=== PATIENT | male | born 1950 | race Caucasian/White ===

== ENCOUNTER → 2019-10-26 | Day surgery (SDC) | payer OTHER ==
[2019-10-23 12:55] LABS: Urine WBC None Seen /hpf (0 - 3)
[2019-10-23 13:02] LABS: Basophils # (auto) 0.1 uL; Basophils % (auto) 0.6 % (0.0-2.0); Eosinophils # (auto) 0.8 uL; Eosinophils % (auto) 8.2 % (0.0-7.0); Hematocrit 29.7 % (41.0-53.0); Hemoglobin 9.9 g/dL (13.5-17.5); Lymphocytes # (auto) 2.3 uL; Lymphocytes % (auto) 23.4 % (10.0-50.0); Mean Corpuscular Hemoglobin 32.6 pg (28.0-32.0); Mean Corpuscular Hgb Conc. 33.4 g/dL (32.0-36.0); Mean Corpuscular Volume 97.5 fL (80.0-100.0); Monocytes % (auto) 10.1 % (0.0-12.0); Neutrophils # (auto) 5.8 uL; Neutrophils % (auto) 57.7 % (37.0-80.0); Platelet Count (auto) 242 10^3/uL (140-450); Red Blood Cells 3.04 10^6/uL (4.5-5.90); Red Cell Distribution Width 14.3 % (11.8-14.3)
[2019-10-23 13:33] LABS: Urine Bacteria NONE SEEN /hpf (None Seen); Urine Blood 1+ /uL (Negative); Urine Specific Gravity 1.014 (1.001-1.035)
[2019-10-23 13:38] LABS: INR 0.98 (0.9-1.15); Partial Thromboplastin Time 27.5 sec (23.64-32.05)
[2019-10-23 13:39] LABS: Albumin 3.2 g/dL (3.4-5.0); BUN/Creatinine Ratio 13.1; Calcium 8.8 mg/dL (8.5-10.1); Potassium 4.7 mmol/L (3.5-5.1)
[2019-10-23 13:42] LABS: Bilirubin, Total 0.2 mg/dL (0.2-1.0); Total Protein 6.4 g/dL (6.4-8.2)
[~2019-10-26] VITALS: Ht 157.5 cm; Wt 59.0 kg
[~2019-10-26] MED LIST: ARIP1TAB7 PO; ASCO100076 PO; BUPRTAB PO; BUPRTAB3 PO; CIPROFLOXACIN 400MG/200ML 200 ML IV ONE; DOCU100C8 PO; DOXA4TAB2 PO; FAM20T PO; FURO1TAB31 PO; GEMF600T7 PO; HYDROmorphone HCL 2 MG/ML VL IV PRN; LIDOCAINE 1% HCL (LOCAL ANESTH.) INJ 20ML MDV ONE; LIDOCAINE 2% JELLY 11ml (GLYDO) ONE; LISI2.5T47 PO; LOVA20TA4 PO; MEPERIDINE HCL (25 MG/ML) 1ML VIAL IV ONE; METO-281 PO; METOCLOPRAMIDE HCL 5MG/ml INJ 2ml VIAL IV PRN; MIDAZOLAM HCL 1MG/1ML-2 ML VIAL ONE; MORP1TAB14 PO; MORPHINE SULFATE 4 MG/ML SYR/VIAL IV PRN; OMEG120015 PO; ONDANSETRON HCL 4 MG/2 ML VIAL ONE; PERCOT PO; PRAS1CAP PO; PROPOFOL 10 MG/ML 20 ML IV ONE; SODIUM CHLORIDE LOCK 10 ML ONE; SUCCINYLCHOLINE CHLORIDE 20 MG/ML 10ML VIAL IV ONE; TURM500C3 PO; fentaNYL CITRATE 100 MCG/2 ML VL IV PRN; fentaNYL CITRATE 100 MCG/2 ML VL ONE
[2019-10-26 09:25] VITALS: BP 136/73
== END | disposition home or self-care (01) ==
LOC: SUR 06:25
PROVIDERS: ATTEND Urology
DX: N40.1 Benign prostatic hyperplasia with lower urinary tract symptoms (principal); E11.22 Type 2 diabetes mellitus with diabetic chronic kidney disease; I12.9 Hypertensive chronic kidney disease with stage 1 through stage 4 chronic kidney disease, or unspecified chronic kidney disease; N18.4 Chronic kidney disease, stage 4 (severe); E11.40 Type 2 diabetes mellitus with diabetic neuropathy, unspecified; K44.9 Diaphragmatic hernia without obstruction or gangrene; K21.9 Gastro-esophageal reflux disease without esophagitis; D64.9 Anemia, unspecified; I71.4 Abdominal aortic aneurysm, without rupture; E78.5 Hyperlipidemia, unspecified; Z96.641 Presence of right artificial hip joint; Z87.891 Personal history of nicotine dependence; Z79.899 Other long term (current) drug therapy; Z79.84 Long term (current) use of oral hypoglycemic drugs
CPT/HCPCS: 36415; 52649; 80053; 81001; 85025; 85610; 85730; 87086; 88305; 93005; J0330; J0744; J2001; J2175; J2250; J2405; J2704; J3010

== ENCOUNTER 2021-12-01 14:56 | Inpatient (IN) | payer OTHER ==
[~2021-12-01] VITALS: Ht 167.6 cm; Wt 56.4 kg
[~2021-12-01 14:56] MED LIST changes: -CIPROFLOXACIN 400MG/200ML 200 ML IV ONE; +DOCU100C10 PO; -DOCU100C8 PO; +DULO20CA PO; -FAM20T PO; +FAMO20TA10 PO; +GEMF-19 PO; -GEMF600T7 PO; -HYDROmorphone HCL 2 MG/ML VL IV PRN; -LIDOCAINE 1% HCL (LOCAL ANESTH.) INJ 20ML MDV ONE; -LIDOCAINE 2% JELLY 11ml (GLYDO) ONE; -MEPERIDINE HCL (25 MG/ML) 1ML VIAL IV ONE; -METOCLOPRAMIDE HCL 5MG/ml INJ 2ml VIAL IV PRN; -MIDAZOLAM HCL 1MG/1ML-2 ML VIAL ONE; -MORPHINE SULFATE 4 MG/ML SYR/VIAL IV PRN; -ONDANSETRON HCL 4 MG/2 ML VIAL ONE; -PROPOFOL 10 MG/ML 20 ML IV ONE; -SODIUM CHLORIDE LOCK 10 ML ONE; -SUCCINYLCHOLINE CHLORIDE 20 MG/ML 10ML VIAL IV ONE; +ZOLP10TA PO; -fentaNYL CITRATE 100 MCG/2 ML VL IV PRN; -fentaNYL CITRATE 100 MCG/2 ML VL ONE
[2021-12-01 16:00] LABS: Basophils # (auto) 0 10 ^3/uL (0-0.2); Basophils % (auto) 0.3 % (0.0-2.0); Eosinophils # (auto) 0.1 10 ^3/uL (0-0.8); Eosinophils % (auto) 0.9 % (0.0-7.0); Hematocrit 35.1 % (41.0-53.0); Hemoglobin 11.7 g/dL (13.5-17.5); Lymphocytes # (auto) 1.4 10 ^3/uL (0.4-5.4); Lymphocytes % (auto) 14.6 % (10.0-50.0); Mean Corpuscular Hemoglobin 35.6 pg (28.0-32.0); Mean Corpuscular Hgb Conc. 33.3 g/dL (32.0-36.0); Mean Corpuscular Volume 106.8 fL (80.0-100.0); Monocytes % (auto) 10.9 % (0.0-12.0); Neutrophils % (auto) 73.3 % (37.0-80.0); Nucleated Red Blood Cells % 0.1 %; Red Blood Cells 3.29 10^6/uL (4.5-5.90); Red Cell Distribution Width 15.7 % (11.8-14.3); White Blood Cell 9.5 10^3/uL (4.4-10.8)
[2021-12-01 16:13] LABS: Albumin 3.2 g/dL (3.4-5.0); Calcium 9.7 mg/dL (8.5-10.1); Potassium 4.8 mmol/L (3.5-5.1)
[2021-12-01 16:17] LABS: Bilirubin, Total 0.4 mg/dL (0.2-1.0); Total Protein 6.9 g/dL (6.4-8.2)
[2021-12-02] MEDS ORDERED: PIPERACILLIN-TAZOB 2.25GM 50 ML IV ONE (03:30)
[2021-12-02] MEDS ORDERED: ACETAMINOPHEN 325 MG TAB PO PRN (03:30)
[2021-12-02] MEDS ORDERED: HYDROcodone-ACET 5/325MG TAB PO PRN (03:30)
[2021-12-02] MEDS ORDERED: ONDANSETRON HCL 4 MG/2 ML VIAL IV PRN (03:30)
[2021-12-02] MEDS ORDERED: DOCUSATE SOD 100 MG CAP PO PRN (03:30)
[2021-12-02] MEDS ORDERED: MORPHINE SULFATE INJECTION 2 MG/ML SYRG IV PRN (04:45)
[2021-12-02] MEDS ORDERED: NITROGLYCERIN 0.4 MG SL TAB SL PRN (04:45)
[2021-12-02 05:00] VITALS: BP 152/83
[2021-12-02 07:05] LABS: Basophils # (auto) 0 10 ^3/uL (0-0.2); Eosinophils # (auto) 0.2 10 ^3/uL (0-0.8); Neutrophils # (auto) 4.9 10 ^3/uL (1.6-8.6)
[2021-12-02 07:07] LABS: Basophils % (auto) 0.5 % (0.0-2.0); Eosinophils % (auto) 2.2 % (0.0-7.0); Hematocrit 31.6 % (41.0-53.0); Hemoglobin 10.5 g/dL (13.5-17.5); Lymphocytes # (auto) 1.4 10 ^3/uL (0.4-5.4); Lymphocytes % (auto) 18.4 % (10.0-50.0); Mean Corpuscular Hemoglobin 35.5 pg (28.0-32.0); Mean Corpuscular Hgb Conc. 33.3 g/dL (32.0-36.0); Mean Corpuscular Volume 106.6 fL (80.0-100.0); Monocytes % (auto) 13.2 % (0.0-12.0); Neutrophils % (auto) 65.7 % (37.0-80.0); Red Blood Cells 2.96 10^6/uL (4.5-5.90); Red Cell Distribution Width 15.7 % (11.8-14.3); White Blood Cell 7.5 10^3/uL (4.4-10.8)
[2021-12-02 07:12] LABS: Albumin 2.7 g/dL (3.4-5.0); Calcium 9.7 mg/dL (8.5-10.1); Potassium 4.9 mmol/L (3.5-5.1)
[2021-12-02 07:14] LABS: BUN/Creatinine Ratio 7.6
[2021-12-02 07:16] LABS: Bilirubin, Total 0.3 mg/dL (0.2-1.0); Total Protein 5.9 g/dL (6.4-8.2)
[2021-12-02] MEDS ORDERED: FURO1TAB32 PO (07:18)
[2021-12-02] MEDS ORDERED: CALC667C PO (07:24)
[2021-12-02] MEDS ORDERED: MEGE20TA5 PO (07:24)
[2021-12-02] MEDS ORDERED: RASA0.5T PO (07:24)
[2021-12-02] MEDS ORDERED: POM (07:24)
[2021-12-02] MEDS ORDERED: CARB25TA75 PO (07:24)
[2021-12-02] MEDS: SEVELAMER 800 MG TAB PO SCH ×2 (08:47→12:24)
[2021-12-02 09:00] VITALS: BP 118/71
[2021-12-02] MEDS ORDERED: B-COMPLEX W/ C & FOLIC ACID(NEPHROVITE TAB) PO SCH (10:00)
[2021-12-02] MEDS ORDERED: HEPARIN SODIUM (PORCINE) 5000 UNITS/ML 1ML VIAL SC SCH (10:00)
[2021-12-02] MEDS ORDERED: ZINC SULFATE 220mg CAP or TAB PO SCH (10:00)
[2021-12-02] MEDS ORDERED: PIPERACILLIN-TAZOB 2.25GM 50 ML IV SCH (10:00)
[2021-12-02] MEDS ORDERED: ASCORBIC ACID 500 MG TAB PO SCH (10:00)
[2021-12-02] MEDS ORDERED: FAMOTIDINE (10MG/ML) 2ML VL IV SCH (10:00)
[2021-12-02 13:00] VITALS: BP_SYST 112; BP_SYST 157; BP_DIAS 72; BP_DIAS 98
[2021-12-02 17:00] VITALS: BP 115/74
[2021-12-02 19:14] VITALS: BP 115/74
== END 2021-12-02 21:05 | disposition home health service (06) | DRG 602 ==
LOC: ER 14:58 → OVERFLOW 12-02 04:37 → WEST WING 12-02 05:02
PROVIDERS: ADMIT Nurse Practitioner Family; ATTEND Nurse Practitioner Family
DX: L03.311 Cellulitis of abdominal wall (principal); N18.6 End stage renal disease; I12.0 Hypertensive chronic kidney disease with stage 5 chronic kidney disease or end stage renal disease; E87.1 Hypo-osmolality and hyponatremia; E88.09 Other disorders of plasma-protein metabolism, not elsewhere classified; F32.9 Major depressive disorder, single episode, unspecified; G89.29 Other chronic pain; M54.50 Low back pain, unspecified; K21.9 Gastro-esophageal reflux disease without esophagitis; E78.5 Hyperlipidemia, unspecified; Z82.49 Family history of ischemic heart disease and other diseases of the circulatory system; Z99.2 Dependence on renal dialysis; Z20.822 Contact with and (suspected) exposure to COVID-19
CPT/HCPCS: 36415; 71046; 74176; 80053; 85025; 87040; 87205; 87426; 89051; 96365; G0378; J2543; J3490

== ENCOUNTER 2022-03-21 20:12 | Emergency (ER) | payer OTHER ==
[~2022-03-21] VITALS: Ht 157.5 cm; Wt 61.2 kg
[~2022-03-21 20:12] MED LIST changes: -ASCO100076 PO; +CALC667C PO; +CARB25TA75 PO; -FURO1TAB31 PO; +FURO1TAB32 PO; +MEGE20TA5 PO; +POM; +RASA0.5T PO; -TURM500C3 PO
[2022-03-21] MEDS ORDERED: IOHEXOL 350 MG/ML 100ML IJ ONE (22:54)
[2022-03-21] MEDS ORDERED: ONDANSETRON ODT 4 MG TAB PO ONE (23:00)
[2022-03-21] MEDS ORDERED: FAMOTIDINE 20 MG TAB PO ONE (23:00)
[2022-03-21] MEDS ORDERED: ALUM & MAG HYDROX-SIMETH LIQ(MAALOX) 30 ML PO ONE (23:00)
[2022-03-21] MEDS ORDERED: LIDOCAINE VISCOUS 2% 15ML UD PO ONE (23:00)
[2022-03-21 23:38] LABS: Basophils # (auto) 0 10 ^3/uL (0-0.2); Eosinophils # (auto) 0.2 10 ^3/uL (0-0.8); Eosinophils % (auto) 2.7 % (0.0-7.0); Lymphocytes # (auto) 1.4 10 ^3/uL (0.4-5.4); Neutrophils # (auto) 5.4 10 ^3/uL (1.6-8.6); Nucleated Red Blood Cells % 0.1 %
[2022-03-21 23:40] LABS: Basophils % (auto) 0.6 % (0.0-2.0); Hematocrit 34.8 % (41.0-53.0); Hemoglobin 11.8 g/dL (13.5-17.5); Lymphocytes % (auto) 16.8 % (10.0-50.0); Mean Corpuscular Hemoglobin 34.8 pg (28.0-32.0); Mean Corpuscular Hgb Conc. 33.8 g/dL (32.0-36.0); Monocytes % (auto) 12.9 % (0.0-12.0); Red Blood Cells 3.38 10^6/uL (4.5-5.90); Red Cell Distribution Width 15.7 % (11.8-14.3); White Blood Cell 8.1 10^3/uL (4.4-10.8)
[2022-03-21] MEDS ORDERED: VANCOMYCIN 1GM/250ML 250 ML IV ONE (23:45)
[2022-03-21 23:52] LABS: Magnesium 2.6 mg/dL (1.6-2.6)
[2022-03-22] LABS: Albumin 3.2 g/dL (3.4-5.0); BUN/Creatinine Ratio 6.5; Calcium 9.1 mg/dL (8.5-10.1); Potassium 4.5 mmol/L (3.5-5.1)
[2022-03-22 00:18] LABS: Bilirubin, Total 0.3 mg/dL (0.2-1.0); Total Protein 6.8 g/dL (6.4-8.2)
[2022-03-22] MEDS: PIPERACILLIN-TAZOB 3.375GM 100 ML IV ONE ×2 (04:15→04:36)
[2022-03-22 18:00] VITALS: BP 145/85
== END 2022-03-22 18:25 | disposition home or self-care (01) ==
LOC: ER 20:12
DX: J18.9 Pneumonia, unspecified organism (principal); N18.6 End stage renal disease; Z99.2 Dependence on renal dialysis; F17.210 Nicotine dependence, cigarettes, uncomplicated; Z79.899 Other long term (current) drug therapy; Z20.822 Contact with and (suspected) exposure to COVID-19
CPT/HCPCS: 36415; 70450; 71045; 71275; 80053; 83690; 83735; 83880; 84484; 85025; 87426; 93005; 96365; 96366; 96367; 99285; J2543; J3370; Q0162; Q9967

== ENCOUNTER 2022-10-23 12:06 | Inpatient (IN) | payer MEDICARE, OTHER ==
[~2022-10-23] VITALS: Ht 167.6 cm; Wt 53.2 kg
[2022-10-23] MEDS ORDERED: AZITHROMYCIN 500MG/ 250ML 250 ML IV ONE (15:15)
[2022-10-23] MEDS ORDERED: cefTRIAXone 1GM/50ML D5W 50 ML IV ONE (15:15)
[2022-10-23 15:39] LABS: Albumin 2.8 g/dL (3.4-5.0); BUN/Creatinine Ratio 7.5; Calcium 8.3 mg/dL (8.5-10.1); Potassium 4.9 mmol/L (3.5-5.1)
[2022-10-23 15:42] LABS: Bilirubin, Total 0.3 mg/dL (0.2-1.0); Total Protein 5.6 g/dL (6.4-8.2)
[2022-10-23] MEDS ORDERED: ALBUTEROL SULF 2.5 MG/0.5ML(0.5%) NEB SOLN NEB PRN (15:45)
[2022-10-23] MEDS ORDERED: SODIUM CHLORIDE 0.9% 1,000 ML IV SCH (15:45)
[2022-10-23] MEDS ORDERED: ACETAMINOPHEN 325 MG TAB PO PRN (15:45)
[2022-10-23] MEDS ORDERED: PANTOPRAZOLE 40 MG/10 ML VIAL INJ IV ONE (16:00)
[2022-10-23 16:10] LABS: Basophils # (auto) 0.1 10 ^3/uL (0-0.2); Basophils % (auto) 0.9 % (0.0-2.0); Eosinophils # (auto) 0.4 10 ^3/uL (0-0.8); Eosinophils % (auto) 5.8 % (0.0-7.0); Hematocrit 38.4 % (41.0-53.0); Hemoglobin 12.3 g/dL (13.5-17.5); Lymphocytes % (auto) 31.6 % (10.0-50.0); Mean Corpuscular Hemoglobin 27.4 pg (28.0-32.0); Mean Corpuscular Volume 85.6 fL (80.0-100.0); Monocytes # (auto) 0.6 10 ^3/uL (0-1.3); Monocytes % (auto) 9.1 % (0.0-12.0); Neutrophils # (auto) 3.3 10 ^3/uL (1.6-8.6); Neutrophils % (auto) 52.6 % (37.0-80.0); Nucleated Red Blood Cells % 0.1 %; Red Blood Cells 4.48 10^6/uL (4.5-5.90); Red Cell Distribution Width 17.2 % (11.8-14.3); White Blood Cell 6.3 10^3/uL (4.4-10.8)
[2022-10-23 17:00] LABS: Cholesterol 130 mg/dL (< 200)
[2022-10-23 17:03] LABS: HDL Cholesterol 45 mg/dL (40-59); LDL Cholesterol 63 mg/dL (< 100); Triglycerides 162 mg/dL (< 150)
[2022-10-23 17:29] LABS: INR 0.94 (0.9-1.15)
[2022-10-23] MEDS ORDERED: CALCIUM ACETATE 667 MG CAP PO SCH (18:00)
[2022-10-23] MEDS ORDERED: MEGESTROL ACETATE 20 MG TAB PO SCH (18:00)
[2022-10-23 20:10] VITALS: BP 181/82
[2022-10-23] MEDS ORDERED: ASCORBIC ACID 500 MG TAB PO SCH (22:00)
[2022-10-23] MEDS ORDERED: GEMFIBROZIL 600 MG TAB PO SCH (22:00)
[2022-10-23] MEDS: CARBIDOPA W LEVODOPA 25/100mg TABLET PO SCH (22:16)
[2022-10-23] MEDS: HEPARIN SODIUM (PORCINE) 5000 UNITS/ML 1ML VIAL SC SCH (22:33)
[2022-10-23] MEDS: DOXAZOSIN MESYL 2 MG TAB PO SCH (22:33)
[2022-10-24 06:45] LABS: Urine Bacteria NONE SEEN /hpf (None Seen); Urine Blood 1+ /uL (Negative); Urine Specific Gravity 1.016 (1.001-1.035); Urine WBC 1 /hpf (0 - 3)
[2022-10-24] MEDS ORDERED: oxyCODONE ER 10 MG TAB PO PRN (07:15)
[2022-10-24 07:45] LABS: Albumin 2.1 g/dL (3.4-5.0); Anion Gap 4 (5-15); Blood Urea Nitrogen 38 mg/dL (7-18); Calcium 7.9 mg/dL (8.5-10.1); Carbon Dioxide 23 mmol/L (21-32); Chloride 110 mmol/L (98-107); Glucose 94 mg/dL (74-106); Potassium 4.4 mmol/L (3.5-5.1); Sodium 137 mmol/L (136-145)
[2022-10-24 07:50] LABS: Alanine Aminotransferase < 6 U/L (16-61); Alkaline Phosphatase 61 U/L (45-117); Aspartate Aminotransferase 7 U/L (15-37); BUN/Creatinine Ratio 7.9; Bilirubin, Total 0.5 mg/dL (0.2-1.0); GFR African American 15 mL/min; GFR Non-African American 13 mL/min; Total Protein 4.7 g/dL (6.4-8.2)
[2022-10-24] MEDS: CALCIUM ACETATE 667 MG CAP PO SCH ×3 (08:27→18:25)
[2022-10-24] MEDS: OXYCODONE W/ ACETAMINOPHEN 5/325MG TABLET PO PRN (08:34)
[2022-10-24] MEDS: cefTRIAXone 1GM/50ML D5W 50 ML IV SCH (09:40)
[2022-10-24] MEDS: Duloxetine Hcl (Cymbalta) 20MG CAPSULE PO SCH (10:00)
[2022-10-24] MEDS: Bupropion HCl (Wellbutrin Xl) 300 MG PO SCH (10:00)
[2022-10-24] MEDS: BUPROPION HCL 150 MG PO SCH (10:00)
[2022-10-24] MEDS ORDERED: ZINC SULFATE 220mg CAP or TAB PO SCH (10:00)
[2022-10-24] MEDS ORDERED: ENOXAPARIN SOD 40 MG/0.4 ML SYRINGE SC SCH (10:00)
[2022-10-24 10:58] VITALS: BP 137/80
[2022-10-24] MEDS ORDERED: SODIUM CHL 0.9% 1000 ML BAG XX ONE (11:00)
[2022-10-24] MEDS ORDERED: ALBUTEROL MEDNEB 2.5 mg/3ml NEB ONE (11:52)
[2022-10-24] MEDS ORDERED: IPRATROPIUM BROM 0.5 MG/2.5ML INH SOL ONE (11:52)
[2022-10-24] MEDS ORDERED: ALBUTEROL MEDNEB 2.5 mg/3ml NEB NEB PRN (12:15)
[2022-10-24] MEDS: MULTIPLE VITAMIN TAB PO SCH (12:16)
[2022-10-24] MEDS: PANTOPRAZOLE 40 MG/10 ML VIAL INJ IV SCH (12:16)
[2022-10-24] MEDS: AZITHROMYCIN 500MG/ 250ML 250 ML IV SCH (12:16)
[2022-10-24] MEDS: FUROSEMIDE 40 MG TAB PO SCH (12:17)
[2022-10-24] MEDS: CARBIDOPA W LEVODOPA 25/100mg TABLET PO SCH ×2 (12:17→22:20)
[2022-10-24] MEDS: LISINOPRIL 5 MG TAB PO SCH (12:18)
[2022-10-24] MEDS: HEPARIN SODIUM (PORCINE) 5000 UNITS/ML 1ML VIAL SC SCH ×2 (12:18→22:20)
[2022-10-24 16:35] VITALS: BP 108/44
[2022-10-24] MEDS: IPRATROPIUM BROM 0.5 MG/2.5ML INH SOL NEB SCH ×3 (19:07→19:15)
[2022-10-24] MEDS: BUDESONIDE (INHALATION) 0.5 MG/2 ML NEB NEB SCH (19:07)
[2022-10-24] MEDS: ALBUTEROL MEDNEB 2.5 mg/3ml NEB NEB SCH (19:07)
[2022-10-24 21:58] VITALS: BP 147/75
[2022-10-24] MEDS ORDERED: ATORVASTATIN 20 MG TAB PO SCH (22:00)
[2022-10-24] MEDS: DOXAZOSIN MESYL 2 MG TAB PO SCH (22:19)
[2022-10-25] MEDS: OXYCODONE W/ ACETAMINOPHEN 5/325MG TABLET PO PRN ×2 (02:46→09:34)
[2022-10-25 05:22] VITALS: BP 152/80
[2022-10-25] MEDS: BUDESONIDE (INHALATION) 0.5 MG/2 ML NEB NEB SCH (07:25)
[2022-10-25] MEDS: ALBUTEROL MEDNEB 2.5 mg/3ml NEB NEB SCH ×2 (07:25→12:25)
[2022-10-25] MEDS: IPRATROPIUM BROM 0.5 MG/2.5ML INH SOL NEB SCH ×2 (07:25→12:25)
[2022-10-25 09:00] VITALS: BP 171/77
[2022-10-25] MEDS: PANTOPRAZOLE 40 MG/10 ML VIAL INJ IV SCH (09:32)
[2022-10-25] MEDS: CALCIUM ACETATE 667 MG CAP PO SCH ×2 (09:33→12:08)
[2022-10-25] MEDS: cefTRIAXone 1GM/50ML D5W 50 ML IV SCH (09:33)
[2022-10-25] MEDS: FUROSEMIDE 40 MG TAB PO SCH (09:34)
[2022-10-25] MEDS: CARBIDOPA W LEVODOPA 25/100mg TABLET PO SCH (09:34)
[2022-10-25] MEDS: MULTIPLE VITAMIN TAB PO SCH (09:34)
[2022-10-25] MEDS: LISINOPRIL 5 MG TAB PO SCH (09:36)
[2022-10-25] MEDS: HEPARIN SODIUM (PORCINE) 5000 UNITS/ML 1ML VIAL SC SCH (09:41)
[2022-10-25] MEDS: Bupropion HCl (Wellbutrin Xl) 300 MG PO SCH (09:42)
[2022-10-25] MEDS: Duloxetine Hcl (Cymbalta) 20MG CAPSULE PO SCH (09:43)
[2022-10-25] MEDS: BUPROPION HCL 150 MG PO SCH (09:43)
[2022-10-25] MEDS: AZITHROMYCIN 500MG/ 250ML 250 ML IV SCH (12:00)
[2022-10-25 13:00] VITALS: BP 112/67
[2022-10-25 15:04] VITALS: BP 171/77
[2022-10-26] MEDS ORDERED: SODIUM CHL 0.9% 1000 ML BAG XX ONE (07:00)
== END 2022-10-25 16:00 | DRG 189 ==
LOC: EDBD 12:06 → ER 12:06 → OVERFLOW 15:46 → CENTRAL 10-24 10:23
PROVIDERS: ADMIT Nurse Practitioner Family; ATTEND Nurse Practitioner Acute Care
PROC: 5A1D70Z Performance of Urinary Filtration, Intermittent, Less than 6 Hours Per Day (ICD-10-PCS; principal; 2022-10-24)
DX: J96.00 Acute respiratory failure, unspecified whether with hypoxia or hypercapnia (principal); J15.9 Unspecified bacterial pneumonia; I50.43 Acute on chronic combined systolic (congestive) and diastolic (congestive) heart failure; N18.6 End stage renal disease; I13.2 Hypertensive heart and chronic kidney disease with heart failure and with stage 5 chronic kidney disease, or end stage renal disease; J44.0 Chronic obstructive pulmonary disease with (acute) lower respiratory infection; J44.1 Chronic obstructive pulmonary disease with (acute) exacerbation; R64 Cachexia; G20 Parkinson's disease; K21.9 Gastro-esophageal reflux disease without esophagitis; Z99.2 Dependence on renal dialysis; D63.8 Anemia in other chronic diseases classified elsewhere; E88.09 Other disorders of plasma-protein metabolism, not elsewhere classified; Z20.822 Contact with and (suspected) exposure to COVID-19; F17.210 Nicotine dependence, cigarettes, uncomplicated; Z82.49 Family history of ischemic heart disease and other diseases of the circulatory system
CPT/HCPCS: 36415; 71045; 78582; 80053; 80061; 81001; 83036; 83880; 84443; 85025; 85379; 85610; 87081; 87426; 87804; 90935; 94640; C9113; G0378; J0696; J1642

== ENCOUNTER 2022-11-28 09:41 | Emergency (ER) | payer MEDICARE, OTHER ==
[~2022-11-28] VITALS: Ht 152.4 cm; Wt 50.0 kg
[2022-11-28 09:45] VITALS: BP 178/93
[2022-11-28 11:04] LABS: Basophils # (auto) 0.1 10 ^3/uL (0-0.2); Eosinophils # (auto) 0.2 10 ^3/uL (0-0.8); Hemoglobin 9.9 g/dL (13.5-17.5); Mean Corpuscular Volume 89.5 fL (80.0-100.0); Monocytes # (auto) 0.8 10 ^3/uL (0-1.3); Neutrophils # (auto) 7.7 10 ^3/uL (1.6-8.6)
[2022-11-28 11:05] LABS: Basophils % (auto) 0.5 % (0.0-2.0); Eosinophils % (auto) 2.2 % (0.0-7.0); Hematocrit 31.6 % (41.0-53.0); Lymphocytes # (auto) 0.8 10 ^3/uL (0.4-5.4); Lymphocytes % (auto) 8.7 % (10.0-50.0); Mean Corpuscular Hemoglobin 27.9 pg (28.0-32.0); Mean Corpuscular Hgb Conc. 31.2 g/dL (32.0-36.0); Monocytes % (auto) 8.3 % (0.0-12.0); Neutrophils % (auto) 80.3 % (37.0-80.0); Red Blood Cells 3.54 10^6/uL (4.5-5.90); Red Cell Distribution Width 19.6 % (11.8-14.3); White Blood Cell 9.6 10^3/uL (4.4-10.8)
[2022-11-28 11:21] LABS: Albumin 2.4 g/dL (3.4-5.0); BUN/Creatinine Ratio 6.2; Calcium 8.6 mg/dL (8.5-10.1)
[2022-11-28 11:24] LABS: Bilirubin, Total 0.5 mg/dL (0.2-1.0); Total Protein 6.3 g/dL (6.4-8.2)
[2022-11-28 11:50] LABS: Potassium 5.9 mmol/L (3.5-5.1)
[2022-11-28] MEDS ORDERED: CALCIUM GLUC 1,000mg/50ml-NS 50 ML IV ONE (13:45)
[2022-11-28] MEDS ORDERED: SODIUM BICARBONATE 8.4 % INJ 50ML VIAL IV ONE (13:45)
[2022-11-28] MEDS ORDERED: InsuLIN REG 1unit/0.01ml Soln (100units/ml) IV ONE (16:15)
[2022-11-28] MEDS ORDERED: SODIUM ZIRCONIUM CYCL 10 GM PAK PO ONE (16:15)
[2022-11-28] MEDS ORDERED: FUROSEMIDE 40 MG/4 ML VIAL IV ONE (16:15)
[2022-11-28] MEDS ORDERED: DEXTROSE (50%) 50ML SYRG IV ONE (16:15)
[2022-11-28] MEDS ORDERED: ONDANSETRON HCL 4 MG/2 ML VIAL IV ONE (17:45)
[2022-11-28] MEDS ORDERED: SODIUM ZIRCONIUM CYCL 10 GM PAK PO SCH (22:00)
[2022-11-29] MEDS ORDERED: SODIUM CHL 0.9% 1000 ML BAG XX ONE (07:00)
[2022-11-29] MEDS ORDERED: EPOETIN ALFA-EPBX 4,000 UNIT/ML VIAL SC ONE (21:00)
== END 2022-11-28 17:40 | disposition left against medical advice (07) ==
LOC: ER 09:41 → EDBD 09:41 → ER 17:40
DX: I12.0 Hypertensive chronic kidney disease with stage 5 chronic kidney disease or end stage renal disease (principal); N18.6 End stage renal disease; E87.5 Hyperkalemia; G25.2 Other specified forms of tremor; E78.5 Hyperlipidemia, unspecified; F17.210 Nicotine dependence, cigarettes, uncomplicated; F12.10 Cannabis abuse, uncomplicated
CPT/HCPCS: 36415; 71045; 80053; 85025; 96374; 99284; J2405

== ENCOUNTER 2023-01-01 09:12 | Inpatient (IN) | payer MEDICARE, OTHER ==
[~2023-01-01] VITALS: Ht 160 cm; Wt 53.6 kg
[2023-01-01 10:13] LABS: Basophils # (auto) 0.1 10 ^3/uL (0-0.2); Eosinophils # (auto) 0.3 10 ^3/uL (0-0.8); Monocytes # (auto) 0.5 10 ^3/uL (0-1.3); Red Blood Cells 4.04 10^6/uL (4.5-5.90)
[2023-01-01 10:15] LABS: Basophils % (auto) 0.8 % (0.0-2.0); Hematocrit 42.4 % (41.0-53.0); Hemoglobin 13.4 g/dL (13.5-17.5); Lymphocytes # (auto) 1.8 10 ^3/uL (0.4-5.4); Lymphocytes % (auto) 17.3 % (10.0-50.0); Mean Corpuscular Hgb Conc. 31.5 g/dL (32.0-36.0); Monocytes % (auto) 4.8 % (0.0-12.0); Neutrophils # (auto) 7.7 10 ^3/uL (1.6-8.6); Neutrophils % (auto) 74.1 % (37.0-80.0); White Blood Cell 10.4 10^3/uL (4.4-10.8)
[2023-01-01 10:18] LABS: Red Cell Distribution Width 21.1 % (11.8-14.3)
[2023-01-01 10:29] LABS: Albumin 2.9 g/dL (3.4-5.0); BUN/Creatinine Ratio 9.9; Bilirubin, Total 0.7 mg/dL (0.2-1.0); Calcium 7.9 mg/dL (8.5-10.1)
[2023-01-01 11:49] LABS: Magnesium 4.9 mg/dL (1.6-2.6); Potassium 7.2 mmol/L (3.5-5.1)
[2023-01-01] MEDS ORDERED: FAMOTIDINE (10MG/ML) 2ML VL IV ONE (13:15)
[2023-01-01] MEDS ORDERED: CALCIUM GLUC 1,000mg/50ml-NS 50 ML IV ONE ×2 (14:30→16:30)
[2023-01-01] MEDS ORDERED: ALBUTEROL SULF 2.5 MG/0.5ML(0.5%) NEB SOLN NEB ONE (16:30)
[2023-01-01] MEDS ORDERED: DEXTROSE (50%) 50ML SYRG IV ONE (16:30)
[2023-01-01] MEDS ORDERED: InsuLIN REG 1unit/0.01ml Soln (100units/ml) IV ONE (16:30)
[2023-01-01] MEDS ORDERED: SODIUM CHL 0.9% 1000 ML BAG XX ONE (16:45)
[2023-01-01] MEDS ORDERED: DEXTROSE 10% 250 ML IV ONE ×2 (17:04→17:15)
[2023-01-01] MEDS ORDERED: MORPHINE SULFATE INJ 2 MG/ml SYRG IV PRN (17:30)
[2023-01-01] MEDS ORDERED: NITROGLYCERIN 0.4 MG SL TAB SL PRN (17:30)
[2023-01-01] MEDS ORDERED: DOCUSATE SOD 100 MG CAP PO PRN (17:30)
[2023-01-01] MEDS ORDERED: hydrALAZINE HCL 20 MG/ML VL IV PRN (17:30)
[2023-01-01] MEDS ORDERED: HYDROcodone-ACET 5/325MG TAB PO PRN (17:30)
[2023-01-01] MEDS ORDERED: ACETAMINOPHEN 325 MG TAB PO PRN (17:30)
[2023-01-01] MEDS: SODIUM ZIRCONIUM CYCL 10 GM PAK PO SCH ×2 (17:35→22:25)
[2023-01-01] MEDS ORDERED: HEPARIN SODIUM (PORCINE) 5000 UNITS/ML 1ML VIAL IV SCH (22:00)
[2023-01-02] MEDS ORDERED: FAMOTIDINE (10MG/ML) 2ML VL IV ONE ×2 (03:45→08:45)
[2023-01-02 05:11] LABS: Basophils # (auto) 0.1 10 ^3/uL (0-0.2); Hemoglobin 12.2 g/dL (13.5-17.5); Mean Corpuscular Volume 103.5 fL (80.0-100.0); Monocytes # (auto) 0.5 10 ^3/uL (0-1.3)
[2023-01-02 05:14] LABS: Eosinophils # (auto) 0.1 10 ^3/uL (0-0.8); Eosinophils % (auto) 1.6 % (0.0-7.0); Hematocrit 38.2 % (41.0-53.0); Lymphocytes # (auto) 1.5 10 ^3/uL (0.4-5.4); Lymphocytes % (auto) 16.7 % (10.0-50.0); Mean Corpuscular Hemoglobin 33.1 pg (28.0-32.0); Mean Corpuscular Hgb Conc. 31.9 g/dL (32.0-36.0); Monocytes % (auto) 6.1 % (0.0-12.0); Neutrophils # (auto) 6.5 10 ^3/uL (1.6-8.6); Neutrophils % (auto) 74.6 % (37.0-80.0); White Blood Cell 8.7 10^3/uL (4.4-10.8)
[2023-01-02 05:28] LABS: Albumin 2.9 g/dL (3.4-5.0); BUN/Creatinine Ratio 8.3; Calcium 8.4 mg/dL (8.5-10.1)
[2023-01-02 05:39] LABS: Bilirubin, Total 0.7 mg/dL (0.2-1.0); Total Protein 6.3 g/dL (6.4-8.2)
[2023-01-02 05:47] LABS: Potassium 6.6 mmol/L (3.5-5.1)
[2023-01-02] MEDS: SODIUM ZIRCONIUM CYCL 10 GM PAK PO SCH (06:53)
[2023-01-02] MEDS: ONDANSETRON HCL 4 MG/2 ML VIAL IV PRN ×2 (08:26→16:29)
[2023-01-02] MEDS ORDERED: SODIUM ZIRCONIUM CYCL 10 GM PAK PO SCH (14:00)
[2023-01-02 17:53] VITALS: BP 167/84
[2023-01-02] MEDS ORDERED: GEMFIBROZIL 600 MG TAB PO SCH (22:00)
[2023-01-02] MEDS ORDERED: HEPARIN SODIUM (PORCINE) 5000 UNITS/ML 1ML VIAL SC SCH (22:00)
[2023-01-02] MEDS ORDERED: CARBIDOPA W LEVODOPA 25/100mg TABLET PO SCH (22:00)
[2023-01-02] MEDS ORDERED: MEGESTROL ACETATE 20 MG TAB PO SCH (22:00)
[2023-01-02] MEDS ORDERED: PRAVASTATIN SODIUM 20 MG TAB PO SCH (22:00)
[2023-01-03] MEDS ORDERED: SODIUM CHL 0.9% 1000 ML BAG XX ONE (07:00)
[2023-01-03 09:35] LABS: Hepatitis A Ab IgM Negative
[2023-01-03 09:36] LABS: Hepatitis B Core IgM Negative
[2023-01-03 09:37] LABS: Hepatitis C Antibody Negative (Negative)
== END 2023-01-02 19:50 | disposition left against medical advice (07) | DRG 640 ==
LOC: ER 09:12 → EDBD 09:12 → TELE 17:25
PROVIDERS: ADMIT Nurse Practitioner; ATTEND Nurse Practitioner
PROC: 5A1D70Z Performance of Urinary Filtration, Intermittent, Less than 6 Hours Per Day (ICD-10-PCS; principal; 2023-01-01)
DX: E87.5 Hyperkalemia (principal); G93.41 Metabolic encephalopathy; N18.6 End stage renal disease; I13.2 Hypertensive heart and chronic kidney disease with heart failure and with stage 5 chronic kidney disease, or end stage renal disease; I50.22 Chronic systolic (congestive) heart failure; E87.8 Other disorders of electrolyte and fluid balance, not elsewhere classified; F17.210 Nicotine dependence, cigarettes, uncomplicated; G20 Parkinson's disease; Z53.29 Procedure and treatment not carried out because of patient's decision for other reasons; D63.8 Anemia in other chronic diseases classified elsewhere; E78.5 Hyperlipidemia, unspecified; K21.9 Gastro-esophageal reflux disease without esophagitis; R55 Syncope and collapse; Z20.822 Contact with and (suspected) exposure to COVID-19; Z99.2 Dependence on renal dialysis; Z82.49 Family history of ischemic heart disease and other diseases of the circulatory system; Z82.5 Family history of asthma and other chronic lower respiratory diseases
CPT/HCPCS: 36415; 70450; 71045; 80053; 80074; 83735; 83880; 84132; 84484; 85025; 87426; 90935; 93005; 94640; 96365; 96366; 96375; 99291; G0378; J1815; J2405; J3490

== ENCOUNTER 2023-01-04 09:32 | Inpatient (IN) | payer MEDICARE, OTHER ==
[~2023-01-04] VITALS: Ht 162.6 cm; Wt 48.6 kg
[2023-01-04] MEDS ORDERED: ACCU-CHEK COMFORT CURVE STRIP VI ONE (10:00)
[2023-01-04 10:19] LABS: Basophils # (auto) 0.1 10 ^3/uL (0-0.2); Basophils % (auto) 0.6 % (0.0-2.0); Eosinophils # (auto) 0.1 10 ^3/uL (0-0.8); Eosinophils % (auto) 1.2 % (0.0-7.0); Hematocrit 36.2 % (41.0-53.0); Hemoglobin 11.7 g/dL (13.5-17.5); Lymphocytes % (auto) 8.6 % (10.0-50.0); Mean Corpuscular Hemoglobin 33.5 pg (28.0-32.0); Mean Corpuscular Hgb Conc. 32.2 g/dL (32.0-36.0); Mean Corpuscular Volume 104.1 fL (80.0-100.0); Monocytes # (auto) 0.8 10 ^3/uL (0-1.3); Monocytes % (auto) 6.7 % (0.0-12.0); Neutrophils # (auto) 9.8 10 ^3/uL (1.6-8.6); Neutrophils % (auto) 82.9 % (37.0-80.0); Nucleated Red Blood Cells % 0.1 %; Red Blood Cells 3.48 10^6/uL (4.5-5.90); White Blood Cell 11.9 10^3/uL (4.4-10.8)
[2023-01-04 10:57] LABS: Calcium 7.6 mg/dL (8.5-10.1)
[2023-01-04 11:00] LABS: BUN/Creatinine Ratio 8.1; Bilirubin, Total 0.7 mg/dL (0.2-1.0); Total Protein 5.7 g/dL (6.4-8.2)
[2023-01-04] MEDS ORDERED: ONDANSETRON HCL 4 MG/2 ML VIAL IV ONE (11:00)
[2023-01-04] MEDS ORDERED: MORPHINE SULFATE INJ 2 MG/ml SYRG IV ONE (11:00)
[2023-01-04 11:12] LABS: Potassium 5.9 mmol/L (3.5-5.1)
[2023-01-04] MEDS ORDERED: SODIUM BICARBONATE 8.4% INJ 50ML SYRINGE IV ONE (12:00)
[2023-01-04] MEDS ORDERED: InsuLIN REG 1unit/0.01ml Soln (100units/ml) IV ONE (12:00)
[2023-01-04] MEDS ORDERED: CALCIUM GLUC 1,000mg/50ml-NS 50 ML IV ONE (12:00)
[2023-01-04] MEDS ORDERED: FUROSEMIDE 20 MG/2 ML VIAL IV ONE (12:00)
[2023-01-04] MEDS ORDERED: ALBUTEROL SULF 2.5 MG/0.5ML(0.5%) NEB SOLN NEB ONE (12:00)
[2023-01-04] MEDS ORDERED: DEXTROSE (50%) 50ML SYRG IV ONE (12:00)
[2023-01-04] MEDS ORDERED: DEXTROSE 10% 250 ML IV ONE (12:43)
[2023-01-04] MEDS ORDERED: LORazepam 2MG/ML-1ML VIAL IV ONE (13:15)
[2023-01-04] MEDS ORDERED: HYDROcodone-ACET 5/325MG TAB PO ONE (13:15)
[2023-01-04] MEDS ORDERED: LORazepam 2MG/ML-1ML VIAL IV PRN ×2 (13:45→19:45)
[2023-01-04] MEDS ORDERED: ONDANSETRON HCL 4 MG/2 ML VIAL IV PRN (13:45)
[2023-01-04] MEDS ORDERED: NITROGLYCERIN 0.4 MG SL TAB SL PRN (13:45)
[2023-01-04] MEDS ORDERED: MORPHINE SULFATE INJ 2 MG/ml SYRG IV PRN (13:45)
[2023-01-04] MEDS: CALCIUM ACETATE 667 MG CAP PO SCH (18:00)
[2023-01-04] MEDS: MEGESTROL ACETATE 20 MG TAB PO SCH ×2 (18:00→22:50)
[2023-01-04] MEDS: HYDROcodone-ACET 5/325MG TAB PO PRN (21:01)
[2023-01-04] MEDS: HEPARIN SODIUM (PORCINE) 5000 UNITS/ML 1ML VIAL SC SCH (21:06)
[2023-01-04] MEDS: DOCUSATE SOD 100 MG CAP PO SCH (21:20)
[2023-01-04] MEDS ORDERED: CARBIDOPA W LEVODOPA 25/100mg TABLET PO SCH (22:00)
[2023-01-04 22:26] LABS: Urine Bacteria FEW /hpf (None Seen); Urine Blood 3+ /uL (Negative); Urine Specific Gravity 1.021 (1.001-1.035); Urine WBC 10 /hpf (0 - 3)
[2023-01-04 22:36] LABS: Alcohol, Urine < 3.0 mg/dL (0-10); Amphetamine Screen, Urine NEGATIVE (NEGATIVE); Barbiturate Scree,Urine NEGATIVE (NEGATIVE); Benzodiazephine Screen, Urine NEGATIVE (NEGATIVE); Cannabinoid Screen, Urine POSITIVE (NEGATIVE); Cocaine Screen, Urine NEGATIVE (NEGATIVE); Phencyclidine Screen, Urine NEGATIVE (NEGATIVE)
[2023-01-04 22:39] LABS: Folate (Folic Acid) > 24.00 ng/mL (5.38-24)
[2023-01-04 22:44] LABS: Opiate Scree,Urine POSITIVE (NEGATIVE)
[2023-01-04] MEDS: FAMOTIDINE 20 MG TAB PO SCH (22:53)
[2023-01-04 23:11] VITALS: BP 146/73
[2023-01-05] MEDS: HYDROcodone-ACET 5/325MG TAB PO PRN ×2 (01:04→16:36)
[2023-01-05 05:00] VITALS: BP 190/81
[2023-01-05 06:24] LABS: Hemoglobin 11.4 g/dL (13.5-17.5); Lymphocytes # (auto) 1.3 10 ^3/uL (0.4-5.4); Nucleated Red Blood Cells % 0.1 %; Red Cell Distribution Width 18.5 % (11.8-14.3)
[2023-01-05 06:26] LABS: Basophils # (auto) 0.1 10 ^3/uL (0-0.2); Basophils % (auto) 0.6 % (0.0-2.0); Eosinophils # (auto) 0 10 ^3/uL (0-0.8); Eosinophils % (auto) 0.5 % (0.0-7.0); Hematocrit 35.2 % (41.0-53.0); Lymphocytes % (auto) 14.8 % (10.0-50.0); Mean Corpuscular Hemoglobin 33.2 pg (28.0-32.0); Mean Corpuscular Hgb Conc. 32.4 g/dL (32.0-36.0); Mean Corpuscular Volume 102.6 fL (80.0-100.0); Monocytes # (auto) 0.6 10 ^3/uL (0-1.3); Monocytes % (auto) 7.4 % (0.0-12.0); Neutrophils # (auto) 6.5 10 ^3/uL (1.6-8.6); Neutrophils % (auto) 76.7 % (37.0-80.0); Red Blood Cells 3.43 10^6/uL (4.5-5.90); White Blood Cell 8.5 10^3/uL (4.4-10.8)
[2023-01-05] MEDS: MEGESTROL ACETATE 20 MG TAB PO SCH ×4 (06:41→22:58)
[2023-01-05] MEDS: CALCIUM ACETATE 667 MG CAP PO SCH ×3 (08:00→17:52)
[2023-01-05 09:00] VITALS: BP 187/88
[2023-01-05 09:06] LABS: Folate (Folic Acid) > 24.00 ng/mL (5.38-24)
[2023-01-05 09:23] LABS: Albumin 2.7 g/dL (3.4-5.0); Calcium 7.6 mg/dL (8.5-10.1)
[2023-01-05 09:26] LABS: BUN/Creatinine Ratio 8.3; Bilirubin, Total 0.7 mg/dL (0.2-1.0); Total Protein 5.4 g/dL (6.4-8.2)
[2023-01-05 09:36] LABS: Potassium 6.4 mmol/L (3.5-5.1)
[2023-01-05] MEDS ORDERED: SODIUM CHL 0.9% 1000 ML BAG XX ONE (09:45)
[2023-01-05] MEDS ORDERED: hydrALAZINE HCL 20 MG/ML VL IV PRN (10:00)
[2023-01-05] MEDS: HEPARIN SODIUM (PORCINE) 5000 UNITS/ML 1ML VIAL SC SCH ×2 (10:00→23:01)
[2023-01-05] MEDS ORDERED: DEXTROSE (50%) 50ML SYRG IV ONE (10:00)
[2023-01-05] MEDS ORDERED: SODIUM ZIRCONIUM CYCL 10 GM PAK PO ONE (10:00)
[2023-01-05] MEDS ORDERED: amLODIPine BESYLATE 5 MG TAB PO ONE (10:00)
[2023-01-05] MEDS ORDERED: CALCIUM GLUC 1,000mg/50ml-NS 50 ML IV ONE (10:00)
[2023-01-05] MEDS ORDERED: SODIUM BICARBONATE 8.4 % INJ 50ML VIAL IV ONE (10:00)
[2023-01-05] MEDS ORDERED: InsuLIN REG 1unit/0.01ml Soln (100units/ml) IV ONE (10:00)
[2023-01-05] MEDS: amLODIPine BESYLATE 5 MG TAB PO SCH (10:00)
[2023-01-05] MEDS ORDERED: ALBUTEROL SULF 2.5 MG/0.5ML(0.5%) NEB SOLN NEB ONE (10:00)
[2023-01-05] MEDS: DOCUSATE SOD 100 MG CAP PO SCH ×2 (10:00→22:00)
[2023-01-05] MEDS ORDERED: FUROSEMIDE 40 MG/4 ML VIAL IV ONE (10:15)
[2023-01-05] MEDS ORDERED: DEXTROSE 10% 250 ML Bag IV ONE (10:45)
[2023-01-05 13:00] VITALS: BP 131/76
[2023-01-05] MEDS: SODIUM ZIRCONIUM CYCL 10 GM PAK PO SCH ×2 (14:00→22:00)
[2023-01-05] MEDS ORDERED: diphenhdrAMINE HCL 50 MG/1 ML VL IV ONE (15:00)
[2023-01-05] MEDS ORDERED: PANTOPRAZOLE 40 MG/10 ML VIAL INJ IV ONE (15:00)
[2023-01-05 17:00] VITALS: BP 174/89
[2023-01-05] MEDS: hydrALAZINE HCL 20 MG/ML VL IV PRN (19:25)
[2023-01-05] MEDS ORDERED: EPOETIN ALFA-EPBX 10,000 UNIT/1ML VIAL SC ONE (21:00)
[2023-01-05 22:00] VITALS: BP 155/65
[2023-01-06] MEDS ORDERED: MELATONIN 5 MG TAB PO ONE (02:00)
[2023-01-06] MEDS: HYDROcodone-ACET 5/325MG TAB PO PRN (02:50)
[2023-01-06 05:00] VITALS: BP 137/80
[2023-01-06] MEDS: SODIUM ZIRCONIUM CYCL 10 GM PAK PO SCH (06:00)
[2023-01-06] MEDS: MEGESTROL ACETATE 20 MG TAB PO SCH ×4 (07:03→22:55)
[2023-01-06 08:32] VITALS: BP 180/69
[2023-01-06] MEDS: FAMOTIDINE 20 MG TAB PO SCH (09:57)
[2023-01-06] MEDS: CALCIUM ACETATE 667 MG CAP PO SCH ×3 (09:57→18:00)
[2023-01-06] MEDS: amLODIPine BESYLATE 5 MG TAB PO SCH (09:58)
[2023-01-06] MEDS: DOCUSATE SOD 100 MG CAP PO SCH ×2 (09:58→22:00)
[2023-01-06] MEDS: hydrALAZINE HCL 20 MG/ML VL IV PRN (09:58)
[2023-01-06] MEDS: PANTOPRAZOLE 40 MG/10 ML VIAL INJ IV SCH (09:58)
[2023-01-06] MEDS: HEPARIN SODIUM (PORCINE) 5000 UNITS/ML 1ML VIAL SC SCH ×2 (10:13→22:55)
[2023-01-06 11:30] LABS: Basophils # (auto) 0 10 ^3/uL (0-0.2); Eosinophils # (auto) 0 10 ^3/uL (0-0.8); Lymphocytes # (auto) 1.5 10 ^3/uL (0.4-5.4); Monocytes # (auto) 0.8 10 ^3/uL (0-1.3)
[2023-01-06 11:32] LABS: Basophils % (auto) 0.5 % (0.0-2.0); Eosinophils % (auto) 0.1 % (0.0-7.0); Hematocrit 42.1 % (41.0-53.0); Hemoglobin 13.2 g/dL (13.5-17.5); Lymphocytes % (auto) 15.4 % (10.0-50.0); Mean Corpuscular Hemoglobin 32.4 pg (28.0-32.0); Mean Corpuscular Hgb Conc. 31.3 g/dL (32.0-36.0); Mean Corpuscular Volume 103.2 fL (80.0-100.0); Monocytes % (auto) 7.8 % (0.0-12.0); Neutrophils # (auto) 7.5 10 ^3/uL (1.6-8.6); Neutrophils % (auto) 76.2 % (37.0-80.0); Nucleated Red Blood Cells % 0.1 %; Red Blood Cells 4.08 10^6/uL (4.5-5.90); Red Cell Distribution Width 18.1 % (11.8-14.3); White Blood Cell 9.8 10^3/uL (4.4-10.8)
[2023-01-06 12:05] LABS: Calcium 9.1 mg/dL (8.5-10.1); Potassium 5.1 mmol/L (3.5-5.1)
[2023-01-06 12:12] LABS: Albumin 3.2 g/dL (3.4-5.0); BUN/Creatinine Ratio 6.2; Bilirubin, Total 0.7 mg/dL (0.2-1.0); Total Protein 6.7 g/dL (6.4-8.2)
[2023-01-06 13:26] VITALS: BP 142/50
[2023-01-06 17:00] VITALS: BP 140/35
[2023-01-06 22:00] VITALS: BP 155/75
[2023-01-07 05:05] VITALS: BP 140/70
[2023-01-07] MEDS: MEGESTROL ACETATE 20 MG TAB PO SCH ×4 (06:00→22:00)
[2023-01-07 07:41] LABS: Basophils # (auto) 0 10 ^3/uL (0-0.2); Eosinophils # (auto) 0 10 ^3/uL (0-0.8); Monocytes # (auto) 1.1 10 ^3/uL (0-1.3); Monocytes % (auto) 10.3 % (0.0-12.0); Neutrophils # (auto) 8.5 10 ^3/uL (1.6-8.6); Red Blood Cells 3.49 10^6/uL (4.5-5.90)
[2023-01-07 07:43] LABS: Basophils % (auto) 0.4 % (0.0-2.0); Eosinophils % (auto) 0.2 % (0.0-7.0); Hematocrit 35.6 % (41.0-53.0); Hemoglobin 11.3 g/dL (13.5-17.5); Lymphocytes # (auto) 1.4 10 ^3/uL (0.4-5.4); Lymphocytes % (auto) 12.4 % (10.0-50.0); Mean Corpuscular Hemoglobin 32.4 pg (28.0-32.0); Mean Corpuscular Hgb Conc. 31.7 g/dL (32.0-36.0); Mean Corpuscular Volume 102.2 fL (80.0-100.0); Neutrophils % (auto) 76.7 % (37.0-80.0); Red Cell Distribution Width 17.7 % (11.8-14.3)
[2023-01-07] MEDS: CALCIUM ACETATE 667 MG CAP PO SCH ×3 (08:00→18:00)
[2023-01-07] MEDS: PANTOPRAZOLE 40 MG/10 ML VIAL INJ IV SCH (08:36)
[2023-01-07] MEDS: DOCUSATE SOD 100 MG CAP PO SCH ×2 (08:37→22:00)
[2023-01-07] MEDS: HEPARIN SODIUM (PORCINE) 5000 UNITS/ML 1ML VIAL SC SCH ×2 (08:49→22:00)
[2023-01-07 08:51] LABS: Albumin 2.8 g/dL (3.4-5.0); Calcium 9.3 mg/dL (8.5-10.1); Potassium 5.1 mmol/L (3.5-5.1)
[2023-01-07 08:56] LABS: BUN/Creatinine Ratio 6.7; Bilirubin, Total 0.7 mg/dL (0.2-1.0); Total Protein 5.5 g/dL (6.4-8.2)
[2023-01-07] MEDS: amLODIPine BESYLATE 5 MG TAB PO SCH (09:36)
[2023-01-07] MEDS: HYDROcodone-ACET 5/325MG TAB PO PRN (09:47)
[2023-01-07 13:00] VITALS: BP 126/65
[2023-01-07 17:00] VITALS: BP 111/56
[2023-01-07 22:00] VITALS: BP 103/56
[2023-01-08 04:58] VITALS: BP 110/64
[2023-01-08] MEDS: MEGESTROL ACETATE 20 MG TAB PO SCH ×4 (06:00→22:00)
[2023-01-08 08:00] VITALS: BP 101/68
[2023-01-08] MEDS: CALCIUM ACETATE 667 MG CAP PO SCH ×3 (08:00→18:00)
[2023-01-08 11:57] VITALS: BP 114/69
[2023-01-08] MEDS: PANTOPRAZOLE 40 MG/10 ML VIAL INJ IV SCH (12:41)
[2023-01-08] MEDS: amLODIPine BESYLATE 5 MG TAB PO SCH (12:42)
[2023-01-08] MEDS: FAMOTIDINE 20 MG TAB PO SCH (12:42)
[2023-01-08] MEDS: DOCUSATE SOD 100 MG CAP PO SCH ×2 (12:43→21:38)
[2023-01-08] MEDS: HEPARIN SODIUM (PORCINE) 5000 UNITS/ML 1ML VIAL SC SCH ×2 (13:04→21:15)
[2023-01-08 16:00] VITALS: BP 129/66
[2023-01-08] MEDS: HYDROcodone-ACET 5/325MG TAB PO PRN ×2 (16:09→21:39)
[2023-01-08 22:00] VITALS: BP 123/70
[2023-01-09 05:00] VITALS: BP 108/67
[2023-01-09 08:00] VITALS: BP 139/76
[2023-01-09] MEDS: CALCIUM ACETATE 667 MG CAP PO SCH ×3 (08:00→18:00)
[2023-01-09] MEDS: PANTOPRAZOLE 40 MG/10 ML VIAL INJ IV SCH (09:59)
[2023-01-09] MEDS: HEPARIN SODIUM (PORCINE) 5000 UNITS/ML 1ML VIAL SC SCH ×2 (10:00→23:15)
[2023-01-09] MEDS: DOCUSATE SOD 100 MG CAP PO SCH ×2 (10:00→22:00)
[2023-01-09] MEDS: HYDROcodone-ACET 5/325MG TAB PO PRN ×2 (10:02→20:06)
[2023-01-09] MEDS: amLODIPine BESYLATE 5 MG TAB PO SCH (10:02)
[2023-01-09 12:00] VITALS: BP 105/58
[2023-01-09 16:00] VITALS: BP 106/54
[2023-01-09] MEDS: Nepro With Carbsteady ButterPecan 8oz Carton PO SCH (18:56)
[2023-01-09 22:00] VITALS: BP 122/67
[2023-01-09] MEDS: MORPHINE SULFATE INJ 2 MG/ml SYRG IV PRN (22:12)
[2023-01-10] MEDS: MORPHINE SULFATE INJ 2 MG/ml SYRG IV PRN ×5 (01:25→21:47)
[2023-01-10 05:00] VITALS: BP 109/68
[2023-01-10] MEDS: MEGESTROL ACETATE 20 MG TAB PO SCH ×5 (06:00→22:00)
[2023-01-10 07:55] VITALS: BP 132/74
[2023-01-10] MEDS: CALCIUM ACETATE 667 MG CAP PO SCH ×3 (08:00→18:37)
[2023-01-10] MEDS: Nepro With Carbsteady ButterPecan 8oz Carton PO SCH ×3 (08:00→18:37)
[2023-01-10] MEDS: DOCUSATE SOD 100 MG CAP PO SCH ×2 (09:52→21:43)
[2023-01-10] MEDS: FAMOTIDINE 20 MG TAB PO SCH (09:52)
[2023-01-10] MEDS ORDERED: AML5T PO (09:55)
[2023-01-10] MEDS ORDERED: KEP500T PO (09:58)
[2023-01-10] MEDS: PANTOPRAZOLE 40 MG/10 ML VIAL INJ IV SCH (10:57)
[2023-01-10] MEDS: amLODIPine BESYLATE 5 MG TAB PO SCH (10:58)
[2023-01-10] MEDS: HEPARIN SODIUM (PORCINE) 5000 UNITS/ML 1ML VIAL SC SCH ×2 (11:12→21:42)
[2023-01-10 12:00] VITALS: BP 163/71
[2023-01-10 16:25] VITALS: BP 110/49
[2023-01-11] MEDS: MORPHINE SULFATE INJ 2 MG/ml SYRG IV PRN ×2 (01:31→09:23)
[2023-01-11 05:00] VITALS: BP 110/69
[2023-01-11] MEDS: MEGESTROL ACETATE 20 MG TAB PO SCH ×2 (06:00→12:00)
[2023-01-11] MEDS: Nepro With Carbsteady ButterPecan 8oz Carton PO SCH ×2 (08:00→12:00)
[2023-01-11 08:45] VITALS: BP 120/72
[2023-01-11] MEDS: DOCUSATE SOD 100 MG CAP PO SCH (09:19)
[2023-01-11] MEDS: CALCIUM ACETATE 667 MG CAP PO SCH ×2 (09:19→12:00)
[2023-01-11] MEDS: amLODIPine BESYLATE 5 MG TAB PO SCH (09:20)
[2023-01-11] MEDS: PANTOPRAZOLE 40 MG/10 ML VIAL INJ IV SCH (09:21)
[2023-01-11] MEDS: HEPARIN SODIUM (PORCINE) 5000 UNITS/ML 1ML VIAL SC SCH (09:26)
[2023-01-11 11:09] VITALS: BP 120/72
== END 2023-01-11 12:21 | disposition home health service (06) | DRG 100 ==
LOC: EDBD 09:32 → ER 09:32 → TELE 13:47 → TELE-EAST 21:51
PROVIDERS: ADMIT Nurse Practitioner Family; ATTEND Nurse Practitioner Family
PROC: 4A00X4Z Measurement of Central Nervous Electrical Activity, External Approach (ICD-10-PCS; principal; 2023-01-04)
PROC: 5A1D70Z Performance of Urinary Filtration, Intermittent, Less than 6 Hours Per Day (ICD-10-PCS; 2023-01-05)
PROC: 5A1D70Z Performance of Urinary Filtration, Intermittent, Less than 6 Hours Per Day (ICD-10-PCS; 2023-01-08)
PROC: 5A1D70Z Performance of Urinary Filtration, Intermittent, Less than 6 Hours Per Day (ICD-10-PCS; 2023-01-10)
DX: G40.409 Other generalized epilepsy and epileptic syndromes, not intractable, without status epilepticus (principal); G93.41 Metabolic encephalopathy; N18.6 End stage renal disease; I12.0 Hypertensive chronic kidney disease with stage 5 chronic kidney disease or end stage renal disease; D53.9 Nutritional anemia, unspecified; Z20.822 Contact with and (suspected) exposure to COVID-19; D63.1 Anemia in chronic kidney disease; D72.829 Elevated white blood cell count, unspecified; E78.5 Hyperlipidemia, unspecified; E87.5 Hyperkalemia; F12.10 Cannabis abuse, uncomplicated; J44.9 Chronic obstructive pulmonary disease, unspecified; K21.9 Gastro-esophageal reflux disease without esophagitis; G20 Parkinson's disease; E83.39 Other disorders of phosphorus metabolism; Z82.5 Family history of asthma and other chronic lower respiratory diseases
CPT/HCPCS: 36415; 70450; 71045; 72125; 72192; 80053; 80061; 80307; 80320; 81001; 82306; 82607; 82746; 82962; 83605; 83880; 83970; 84100; 84132; 84484; 85025; 87040; 87081; 87426; 90935; 93306; 94640; 95819; 96365; 96375; 97110; 97116; 97163; 97530; 99291; C9113; G0378; J1642; J1815; J2405; J7060

== ENCOUNTER 2023-04-03 03:34 | Inpatient (IN) | payer MEDICARE, MEDICAID ==
[~2023-04-03] VITALS: Ht 154.9 cm; Wt 62.8 kg
[~2023-04-03 03:34] MED LIST changes: +AML5T PO; -BUPRTAB3 PO; -CARB25TA75 PO; +DOCU-265 PO; -DOCU100C10 PO; -DOXA4TAB2 PO; +DOXA4TAB96 PO; -GEMF-19 PO; +GEMF-66 PO; +KEP500T PO; +MEGE20TA3 PO; -MEGE20TA5 PO; -POM
[2023-04-03] MEDS ORDERED: ONDANSETRON HCL 4 MG/2 ML VIAL IV ONE (04:45)
[2023-04-03] MEDS ORDERED: hydrALAZINE HCL 20 MG/ML VL IV ONE (04:45)
[2023-04-03] MEDS ORDERED: MORPHINE SULFATE INJ 2 MG/ml SYRG IV ONE (04:45)
[2023-04-03 08:20] LABS: Basophils # (auto) 0 10 ^3/uL (0-0.2); Basophils % (auto) 0.3 % (0.0-2.0); Eosinophils # (auto) 0.9 10 ^3/uL (0-0.8); Eosinophils % (auto) 6.7 % (0.0-7.0); Hematocrit 33.2 % (41.0-53.0); Hemoglobin 10.4 g/dL (13.5-17.5); Lymphocytes # (auto) 1.5 10 ^3/uL (0.4-5.4); Lymphocytes % (auto) 11.8 % (10.0-50.0); Mean Corpuscular Hemoglobin 33.1 pg (28.0-32.0); Mean Corpuscular Hgb Conc. 31.2 g/dL (32.0-36.0); Monocytes # (auto) 1.5 10 ^3/uL (0-1.3); Monocytes % (auto) 11.2 % (0.0-12.0); Neutrophils # (auto) 9.1 10 ^3/uL (1.6-8.6); Red Blood Cells 3.14 10^6/uL (4.5-5.90); Red Cell Distribution Width 15.8 % (11.8-14.3); White Blood Cell 13.1 10^3/uL (4.4-10.8)
[2023-04-03 08:26] LABS: INR 0.97 (0.9-1.15); Partial Thromboplastin Time 29.8 sec (24.6-33.4)
[2023-04-03 10:38] LABS: Albumin 3.2 g/dL (3.4-5.0); Calcium 8.9 mg/dL (8.5-10.1)
[2023-04-03 10:41] LABS: BUN/Creatinine Ratio 7.8 (10.0-20.0); Bilirubin, Total 0.4 mg/dL (0.2-1.0); Total Protein 5.9 g/dL (6.4-8.2)
[2023-04-03 11:14] LABS: Magnesium 4.2 mg/dL (1.6-2.6); Potassium 7.1 mmol/L (3.5-5.1)
[2023-04-03] MEDS: FUROSEMIDE 40 MG TAB PO SCH (11:43)
[2023-04-03] MEDS ORDERED: FUROSEMIDE 40 MG/4 ML VIAL IV ONE (11:45)
[2023-04-03] MEDS ORDERED: SODIUM BICARBONATE 8.4% INJ 50ML SYRINGE IV ONE ×3 (11:45→17:30)
[2023-04-03] MEDS ORDERED: SODIUM ZIRCONIUM CYCL 10 GM PAK PO ONE ×2 (11:45)
[2023-04-03] MEDS ORDERED: DEXTROSE (50%) 50ML SYRG IV ONE ×3 (11:45→17:30)
[2023-04-03] MEDS ORDERED: ALBUTEROL SULF 2.5 MG/0.5ML(0.5%) NEB SOLN NEB ONE ×2 (11:45)
[2023-04-03] MEDS ORDERED: InsuLIN REG 1unit/0.01ml Soln (100units/ml) IV ONE ×4 (11:45→17:30)
[2023-04-03] MEDS ORDERED: CALCIUM GLUC 1,000mg/50ml-NS 50 ML IV ONE ×3 (11:45→17:30)
[2023-04-03] MEDS ORDERED: DEXTROSE 10% 250 ML Bag IV SCH (11:48)
[2023-04-03] MEDS ORDERED: DEXTROSE 10% 250 ML Bag IV ONE (12:00)
[2023-04-03] MEDS: CALCIUM ACETATE 667 MG CAP PO SCH ×3 (12:08→22:24)
[2023-04-03] MEDS: MEGESTROL ACETATE 20 MG TAB PO SCH ×3 (14:52→22:25)
[2023-04-03] MEDS ORDERED: levoFLOXacin 500MG 100 ML IV ONE (15:00)
[2023-04-03] MEDS ORDERED: levoFLOXacin 250MG 50 ML IV SCH (15:00)
[2023-04-03] MEDS ORDERED: SODIUM CHL 0.9% 1000 ML BAG XX ONE (17:30)
[2023-04-03] MEDS ORDERED: ALBUMIN 25% 100 ML IV PRN (18:30)
[2023-04-03 18:31] LABS: Urine Bacteria NONE SEEN /hpf (None Seen); Urine Blood 2+ /uL (Negative); Urine Specific Gravity 1.017 (1.001-1.035); Urine WBC 15 /hpf (0 - 3)
[2023-04-03 18:50] LABS: Amphetamine Screen, Urine NEGATIVE (NEGATIVE); Barbiturate Scree,Urine POSITIVE (NEGATIVE); Benzodiazephine Screen, Urine NEGATIVE (NEGATIVE); Cannabinoid Screen, Urine POSITIVE (NEGATIVE); Cocaine Screen, Urine NEGATIVE (NEGATIVE); Phencyclidine Screen, Urine NEGATIVE (NEGATIVE)
[2023-04-03 18:57] LABS: Opiate Scree,Urine POSITIVE (NEGATIVE)
[2023-04-03] MEDS ORDERED: EPOETIN ALFA-EPBX 10,000 UNIT/1ML VIAL SC ONE (21:00)
[2023-04-03] MEDS ORDERED: SODIUM ZIRCONIUM CYCL 10 GM PAK PO SCH ×2 (22:00)
[2023-04-03] MEDS: GEMFIBROZIL 600 MG TAB PO SCH (22:24)
[2023-04-03] MEDS: DOCUSATE SOD 100 MG CAP PO SCH (22:24)
[2023-04-03] MEDS: RASAGILINE MESYLATE 0.5 MG PO SCH (22:40)
[2023-04-03] MEDS: DOXAZOSIN MESYL 2 MG TAB PO SCH (23:07)
[2023-04-04] MEDS ORDERED: hydrALAZINE HCL 20 MG/ML VL IV PRN (02:15)
[2023-04-04] MEDS ORDERED: hydrALAZINE HCL 20 MG/ML VL ONE (02:17)
[2023-04-04] MEDS: MORPHINE SULFATE INJ 2 MG/ml SYRG IV PRN (04:21)
[2023-04-04 06:05] LABS: Basophils # (auto) 0 10 ^3/uL (0-0.2); Eosinophils # (auto) 0.2 10 ^3/uL (0-0.8); Lymphocytes # (auto) 0.5 10 ^3/uL (0.4-5.4); Monocytes # (auto) 0.6 10 ^3/uL (0-1.3); Neutrophils # (auto) 4.9 10 ^3/uL (1.6-8.6); Nucleated Red Blood Cells % 0.1 %
[2023-04-04 06:08] LABS: Basophils % (auto) 0.3 % (0.0-2.0); Hematocrit 28.1 % (41.0-53.0); Hemoglobin 9.4 g/dL (13.5-17.5); Lymphocytes % (auto) 7.9 % (10.0-50.0); Mean Corpuscular Hgb Conc. 33.4 g/dL (32.0-36.0); Mean Corpuscular Volume 101.9 fL (80.0-100.0); Neutrophils % (auto) 78.8 % (37.0-80.0); Red Blood Cells 2.76 10^6/uL (4.5-5.90); Red Cell Distribution Width 15.3 % (11.8-14.3); White Blood Cell 6.2 10^3/uL (4.4-10.8)
[2023-04-04] MEDS: MEGESTROL ACETATE 20 MG TAB PO SCH ×4 (06:11→21:51)
[2023-04-04 06:13] LABS: BUN/Creatinine Ratio 5.6 (10.0-20.0); Bilirubin, Total 0.4 mg/dL (0.2-1.0); Calcium 9.1 mg/dL (8.5-10.1); Total Protein 5.8 g/dL (6.4-8.2)
[2023-04-04] MEDS ORDERED: levoFLOXacin 250MG 50 ML IV SCH (10:00)
[2023-04-04] MEDS: RASAGILINE MESYLATE 0.5 MG PO SCH ×2 (10:00→22:00)
[2023-04-04] MEDS: LOVASTATIN 20 MG PO SCH (10:00)
[2023-04-04] MEDS ORDERED: PANTOPRAZOLE 40 MG/10 ML VIAL INJ IV SCH (10:00)
[2023-04-04] MEDS: PRASTERONE 25 MG PO SCH (10:00)
[2023-04-04] MEDS: DOCUSATE SOD 100 MG CAP PO SCH ×2 (11:01→21:51)
[2023-04-04] MEDS: GEMFIBROZIL 600 MG TAB PO SCH ×2 (11:01→21:51)
[2023-04-04] MEDS: LISINOPRIL 5 MG TAB PO SCH (11:02)
[2023-04-04] MEDS: amLODIPine BESYLATE 5 MG TAB PO SCH (11:03)
[2023-04-04] MEDS: FUROSEMIDE 40 MG TAB PO SCH (11:04)
[2023-04-04] MEDS: CALCIUM ACETATE 667 MG CAP PO SCH ×2 (11:56→17:49)
[2023-04-04 14:13] VITALS: BP 153/69
[2023-04-04 14:16] VITALS: BP 153/69
[2023-04-04] MEDS ORDERED: PANT1INJ3 PO (14:43)
[2023-04-04] MEDS ORDERED: ATOR10TA PO (14:44)
[2023-04-04] MEDS ORDERED: MIRT1TAB38 PO (14:45)
[2023-04-04] MEDS ORDERED: TIZA4CAP PO (14:45)
[2023-04-04] MEDS ORDERED: ROPI0.5T4 PO (14:47)
[2023-04-04] MEDS ORDERED: PRIM125T PO (14:48)
[2023-04-04 17:05] VITALS: BP 148/66
[2023-04-04 19:57] LABS: Folate (Folic Acid) > 24.00 ng/mL (5.38-24)
[2023-04-04 20:00] VITALS: BP 141/66
[2023-04-04] MEDS: DOXAZOSIN MESYL 2 MG TAB PO SCH (21:51)
[2023-04-04 22:00] VITALS: BP 141/66
[2023-04-04] MEDS ORDERED: FAMOTIDINE 20 MG TAB PO SCH (22:00)
[2023-04-04] MEDS: FAMOTIDINE 20 MG TAB PO SCH (22:08)
[2023-04-05] MEDS: ONDANSETRON HCL 4 MG/2 ML VIAL IV PRN (03:44)
[2023-04-05 05:00] VITALS: BP 159/78
[2023-04-05] MEDS: MEGESTROL ACETATE 20 MG TAB PO SCH ×4 (05:46→21:31)
[2023-04-05] MEDS: MORPHINE SULFATE INJ 2 MG/ml SYRG IV PRN ×4 (06:39→22:33)
[2023-04-05] MEDS ORDERED: SODIUM CHL 0.9% 1000 ML BAG XX ONE (07:00)
[2023-04-05 07:08] LABS: BUN/Creatinine Ratio 5.8 (10.0-20.0); Calcium 9.3 mg/dL (8.5-10.1); Potassium 5.5 mmol/L (3.5-5.1)
[2023-04-05 07:24] LABS: Eosinophils # (auto) 0.7 10 ^3/uL (0-0.8); Eosinophils % (auto) 8.6 % (0.0-7.0); Lymphocytes # (auto) 1.1 10 ^3/uL (0.4-5.4); Red Cell Distribution Width 15.1 % (11.8-14.3)
[2023-04-05 07:26] LABS: Basophils # (auto) 0.1 10 ^3/uL (0-0.2); Basophils % (auto) 0.7 % (0.0-2.0); Hematocrit 28.3 % (41.0-53.0); Hemoglobin 9.1 g/dL (13.5-17.5); Lymphocytes % (auto) 14.1 % (10.0-50.0); Mean Corpuscular Hemoglobin 33.2 pg (28.0-32.0); Mean Corpuscular Hgb Conc. 32.2 g/dL (32.0-36.0); Mean Corpuscular Volume 102.9 fL (80.0-100.0); Monocytes # (auto) 0.7 10 ^3/uL (0-1.3); Neutrophils # (auto) 5.2 10 ^3/uL (1.6-8.6); Neutrophils % (auto) 67.6 % (37.0-80.0); Red Blood Cells 2.75 10^6/uL (4.5-5.90); White Blood Cell 7.7 10^3/uL (4.4-10.8)
[2023-04-05] MEDS: cefTRIAXone 1GM/50ML D5W 50 ML IV SCH (09:33)
[2023-04-05] MEDS: DOCUSATE SOD 100 MG CAP PO SCH ×2 (09:33→21:30)
[2023-04-05] MEDS: GEMFIBROZIL 600 MG TAB PO SCH ×2 (09:34→21:31)
[2023-04-05] MEDS: CALCIUM ACETATE 667 MG CAP PO SCH ×3 (09:35→17:58)
[2023-04-05] MEDS: FAMOTIDINE 20 MG TAB PO SCH ×2 (09:35→20:09)
[2023-04-05] MEDS: LISINOPRIL 5 MG TAB PO SCH (09:36)
[2023-04-05] MEDS: amLODIPine BESYLATE 5 MG TAB PO SCH (09:36)
[2023-04-05] MEDS: FUROSEMIDE 40 MG TAB PO SCH (09:37)
[2023-04-05] MEDS: PRASTERONE 25 MG PO SCH (10:00)
[2023-04-05] MEDS: LOVASTATIN 20 MG PO SCH (10:00)
[2023-04-05] MEDS ORDERED: CYANOCOBALAMIN (B-12) 1000 MCG/1 ML VIAL IM ONE (10:30)
[2023-04-05] MEDS ORDERED: ARIP1TAB7 PO (11:29)
[2023-04-05] MEDS ORDERED: MEMA1TAB3 PO (11:29)
[2023-04-05] MEDS ORDERED: ATOR10TA PO (11:29)
[2023-04-05] MEDS ORDERED: PANT40TA2 PO (11:29)
[2023-04-05] MEDS ORDERED: diphenhdrAMINE HCL 25 MG CAP PO PRN (12:00)
[2023-04-05 17:00] VITALS: BP 120/64
[2023-04-05] MEDS: RASAGILINE MESYLATE 0.5 MG PO SCH (17:59)
[2023-04-05 20:00] VITALS: BP 124/62
[2023-04-05] MEDS ORDERED: EPOETIN ALFA-EPBX 10,000 UNIT/1ML VIAL SC ONE (21:00)
[2023-04-05] MEDS: DOXAZOSIN MESYL 2 MG TAB PO SCH (21:30)
[2023-04-05 22:00] VITALS: BP 132/51
[2023-04-05] MEDS ORDERED: LORazepam 2MG/ML-1ML VIAL IV PRN ×2 (22:45)
[2023-04-06] VITALS (7 sets, daily range): BP systolic 111–152; BP diastolic 43–80
[2023-04-06] MEDS: ONDANSETRON HCL 4 MG/2 ML VIAL IV PRN ×2 (00:18→01:55)
[2023-04-06] MEDS: MAALOX PLUS or MAALOX 30 ML PO PRN (02:20)
[2023-04-06] MEDS: MORPHINE SULFATE INJ 2 MG/ml SYRG IV PRN ×4 (02:28→22:29)
[2023-04-06 05:55] LABS: BUN/Creatinine Ratio 5.2 (10.0-20.0); Calcium 9.2 mg/dL (8.5-10.1); Potassium 4.5 mmol/L (3.5-5.1)
[2023-04-06] MEDS: MEGESTROL ACETATE 20 MG TAB PO SCH ×4 (06:24→21:12)
[2023-04-06 06:42] LABS: Eosinophils # (auto) 0.8 10 ^3/uL (0-0.8); Hemoglobin 8.8 g/dL (13.5-17.5); Nucleated Red Blood Cells % 0.1 %
[2023-04-06 06:45] LABS: Basophils # (auto) 0 10 ^3/uL (0-0.2); Basophils % (auto) 0.7 % (0.0-2.0); Eosinophils % (auto) 10.9 % (0.0-7.0); Hematocrit 26.3 % (41.0-53.0); Lymphocytes # (auto) 1.3 10 ^3/uL (0.4-5.4); Lymphocytes % (auto) 18.1 % (10.0-50.0); Mean Corpuscular Hemoglobin 34.2 pg (28.0-32.0); Mean Corpuscular Hgb Conc. 33.2 g/dL (32.0-36.0); Mean Corpuscular Volume 102.8 fL (80.0-100.0); Monocytes # (auto) 0.8 10 ^3/uL (0-1.3); Monocytes % (auto) 11.3 % (0.0-12.0); Neutrophils # (auto) 4.3 10 ^3/uL (1.6-8.6); Red Blood Cells 2.56 10^6/uL (4.5-5.90); Red Cell Distribution Width 14.9 % (11.8-14.3); White Blood Cell 7.3 10^3/uL (4.4-10.8)
[2023-04-06] MEDS: cefTRIAXone 1GM/50ML D5W 50 ML IV SCH (09:05)
[2023-04-06] MEDS: CALCIUM ACETATE 667 MG CAP PO SCH ×3 (09:05→17:41)
[2023-04-06] MEDS: amLODIPine BESYLATE 5 MG TAB PO SCH (10:08)
[2023-04-06] MEDS: GEMFIBROZIL 600 MG TAB PO SCH ×2 (10:08→21:13)
[2023-04-06] MEDS: DOCUSATE SOD 100 MG CAP PO SCH ×2 (10:08→21:13)
[2023-04-06] MEDS: FAMOTIDINE 20 MG TAB PO SCH ×2 (10:08→21:13)
[2023-04-06] MEDS: LISINOPRIL 5 MG TAB PO SCH (10:10)
[2023-04-06] MEDS: FUROSEMIDE 40 MG TAB PO SCH (10:10)
[2023-04-06] MEDS: PRASTERONE 25 MG PO SCH (11:20)
[2023-04-06] MEDS: LOVASTATIN 20 MG PO SCH (11:20)
[2023-04-06] MEDS: RASAGILINE MESYLATE 0.5 MG PO SCH (11:50)
[2023-04-06] MEDS: DOXAZOSIN MESYL 2 MG TAB PO SCH (21:51)
[2023-04-07] MEDS: MAALOX PLUS or MAALOX 30 ML PO PRN ×3 (00:04→12:26)
[2023-04-07 05:00] VITALS: BP 143/72
[2023-04-07] MEDS: MEGESTROL ACETATE 20 MG TAB PO SCH ×4 (06:12→23:10)
[2023-04-07 06:37] LABS: Potassium 5.1 mmol/L (3.5-5.1)
[2023-04-07 06:48] LABS: BUN/Creatinine Ratio 5.9 (10.0-20.0); Calcium 9.2 mg/dL (8.5-10.1)
[2023-04-07 06:56] LABS: Hemoglobin 8.9 g/dL (13.5-17.5)
[2023-04-07 06:58] LABS: Hematocrit 27.3 % (41.0-53.0)
[2023-04-07 08:00] VITALS: BP 189/70
[2023-04-07 09:00] VITALS: BP 189/70
[2023-04-07] MEDS: cefTRIAXone 1GM/50ML D5W 50 ML IV SCH (09:24)
[2023-04-07] MEDS: CALCIUM ACETATE 667 MG CAP PO SCH ×3 (09:24→18:04)
[2023-04-07] MEDS: RASAGILINE MESYLATE 0.5 MG PO SCH (10:00)
[2023-04-07] MEDS ORDERED: ASPirin 325 MG TAB PO SCH (10:00)
[2023-04-07] MEDS: LISINOPRIL 5 MG TAB PO SCH (10:00)
[2023-04-07] MEDS: LOVASTATIN 20 MG PO SCH (10:00)
[2023-04-07] MEDS: PRASTERONE 25 MG PO SCH (10:00)
[2023-04-07] MEDS: DOCUSATE SOD 100 MG CAP PO SCH ×2 (10:03→21:12)
[2023-04-07] MEDS: FUROSEMIDE 40 MG TAB PO SCH (10:03)
[2023-04-07] MEDS: amLODIPine BESYLATE 5 MG TAB PO SCH (10:03)
[2023-04-07] MEDS: FAMOTIDINE 20 MG TAB PO SCH ×2 (10:03→21:12)
[2023-04-07] MEDS: GEMFIBROZIL 600 MG TAB PO SCH ×2 (10:03→21:11)
[2023-04-07 14:14] VITALS: BP 145/76
[2023-04-07 16:37] VITALS: BP 151/71
[2023-04-07] MEDS: MORPHINE SULFATE INJ 2 MG/ml SYRG IV PRN (18:04)
[2023-04-07] MEDS: DOXAZOSIN MESYL 2 MG TAB PO SCH (21:17)
[2023-04-07 22:00] VITALS: BP_SYST 149; BP_SYST 153; BP_DIAS 74
[2023-04-08 05:00] VITALS: BP 126/51
[2023-04-08] MEDS: MEGESTROL ACETATE 20 MG TAB PO SCH ×4 (05:27→22:00)
[2023-04-08] MEDS: cefTRIAXone 1GM/50ML D5W 50 ML IV SCH (08:59)
[2023-04-08 09:00] VITALS: BP 130/58
[2023-04-08] MEDS: DOCUSATE SOD 100 MG CAP PO SCH ×2 (09:00→22:13)
[2023-04-08] MEDS: GEMFIBROZIL 600 MG TAB PO SCH ×2 (09:01→22:13)
[2023-04-08] MEDS: FAMOTIDINE 20 MG TAB PO SCH ×2 (09:01→22:13)
[2023-04-08] MEDS: FUROSEMIDE 40 MG TAB PO SCH (09:01)
[2023-04-08] MEDS: CALCIUM ACETATE 667 MG CAP PO SCH ×3 (09:01→18:00)
[2023-04-08] MEDS: amLODIPine BESYLATE 5 MG TAB PO SCH (09:01)
[2023-04-08] MEDS: LISINOPRIL 5 MG TAB PO SCH (09:02)
[2023-04-08] MEDS: LOVASTATIN 20 MG PO SCH (09:15)
[2023-04-08] MEDS: RASAGILINE MESYLATE 0.5 MG PO SCH (09:16)
[2023-04-08] MEDS: PRASTERONE 25 MG PO SCH (09:16)
[2023-04-08 13:00] VITALS: BP 134/52
[2023-04-08 16:45] VITALS: BP 111/43
[2023-04-08] MEDS ORDERED: EPOETIN ALFA-EPBX 4,000 UNIT/ML VIAL SC ONE (18:15)
[2023-04-08 20:33] LABS: Hepatitis A Ab IgM Negative; Hepatitis B Core IgM Negative; Hepatitis C Antibody Negative (Negative)
[2023-04-08 22:00] VITALS: BP 136/60
[2023-04-08] MEDS: DOXAZOSIN MESYL 2 MG TAB PO SCH (22:18)
[2023-04-08 22:30] VITALS: BP 141/53
[2023-04-09 05:00] VITALS: BP 137/63
[2023-04-09] MEDS: MEGESTROL ACETATE 20 MG TAB PO SCH ×2 (05:10→11:34)
[2023-04-09] MEDS: PRASTERONE 25 MG PO SCH (08:36)
[2023-04-09] MEDS: RASAGILINE MESYLATE 0.5 MG PO SCH (08:36)
[2023-04-09] MEDS: LOVASTATIN 20 MG PO SCH (08:36)
[2023-04-09] MEDS: cefTRIAXone 1GM/50ML D5W 50 ML IV SCH (08:38)
[2023-04-09] MEDS: CALCIUM ACETATE 667 MG CAP PO SCH ×2 (08:38→11:34)
[2023-04-09] MEDS: GEMFIBROZIL 600 MG TAB PO SCH (08:50)
[2023-04-09] MEDS: FUROSEMIDE 40 MG TAB PO SCH (08:50)
[2023-04-09] MEDS: FAMOTIDINE 20 MG TAB PO SCH (08:50)
[2023-04-09] MEDS: DOCUSATE SOD 100 MG CAP PO SCH (08:50)
[2023-04-09] MEDS: amLODIPine BESYLATE 5 MG TAB PO SCH (08:50)
[2023-04-09] MEDS: LISINOPRIL 5 MG TAB PO SCH (08:51)
[2023-04-09 09:00] VITALS: BP 156/75
[2023-04-09] MEDS: MAALOX PLUS or MAALOX 30 ML PO PRN (11:43)
== END 2023-04-09 13:22 | DRG 291 ==
LOC: EDBD 03:34 → ER 03:34 → TELE 11:51 → TELE-WESTW 04-04 13:40
PROVIDERS: ADMIT Nurse Practitioner Family; ATTEND Internal Medicine
PROC: 5A1D70Z Performance of Urinary Filtration, Intermittent, Less than 6 Hours Per Day (ICD-10-PCS; principal; 2023-04-03)
PROC: 5A1D70Z Performance of Urinary Filtration, Intermittent, Less than 6 Hours Per Day (ICD-10-PCS; 2023-04-05)
PROC: 4A10X4Z Monitoring of Central Nervous Electrical Activity, External Approach (ICD-10-PCS; 2023-04-06)
PROC: 5A1D70Z Performance of Urinary Filtration, Intermittent, Less than 6 Hours Per Day (ICD-10-PCS; 2023-04-08)
DX: I13.2 Hypertensive heart and chronic kidney disease with heart failure and with stage 5 chronic kidney disease, or end stage renal disease (principal); G93.41 Metabolic encephalopathy; I50.33 Acute on chronic diastolic (congestive) heart failure; N18.6 End stage renal disease; I16.1 Hypertensive emergency; E44.0 Moderate protein-calorie malnutrition; I82.611 Acute embolism and thrombosis of superficial veins of right upper extremity; E87.5 Hyperkalemia; D72.829 Elevated white blood cell count, unspecified; K21.9 Gastro-esophageal reflux disease without esophagitis; Z20.822 Contact with and (suspected) exposure to COVID-19; Z96.641 Presence of right artificial hip joint; E78.5 Hyperlipidemia, unspecified; G40.409 Other generalized epilepsy and epileptic syndromes, not intractable, without status epilepticus; F17.210 Nicotine dependence, cigarettes, uncomplicated; G20 Parkinson's disease; S01.112A Laceration without foreign body of left eyelid and periocular area, initial encounter; S40.812A Abrasion of left upper arm, initial encounter; F32.A Depression, unspecified; D63.1 Anemia in chronic kidney disease; D53.9 Nutritional anemia, unspecified; Z99.2 Dependence on renal dialysis; Z79.899 Other long term (current) drug therapy; Z82.49 Family history of ischemic heart disease and other diseases of the circulatory system; Z82.5 Family history of asthma and other chronic lower respiratory diseases; Z68.26 Body mass index [BMI] 26.0-26.9, adult; W06.XXXA Fall from bed, initial encounter; Y93.89 Activity, other specified; Y92.89 Other specified places as the place of occurrence of the external cause; Y99.8 Other external cause status
CPT/HCPCS: 36415; 70450; 70486; 71045; 71250; 72125; 74176; 80048; 80053; 80074; 80307; 81001; 82140; 82607; 82746; 82962; 83735; 83880; 84132; 84443; 84484; 85014; 85018; 85025; 85610; 85730; 87426; 90935; 93005; 93971; 94640; 95819; 97110; 97116; 97163; 97530; 99291; C9113; G0378; J0696; J1642; J1815; J1956; J2405; J7060

== ENCOUNTER 2023-11-26 06:25 | Inpatient (IN) | payer MEDICAID, MEDICARE ==
[~2023-11-26] VITALS: Ht 152.4 cm; Wt 57.8 kg
[~2023-11-26 06:25] MED LIST changes: +ATOR10TA PO; -DULO20CA PO; +MEMA1TAB3 PO; +MIRT1TAB38 PO; -MORP1TAB14 PO; +PANT1INJ3 PO; +PANT40TA2 PO; +PRIM125T PO; +ROPI0.5T4 PO; +TIZA4CAP PO; -ZOLP10TA PO
[2023-11-26 07:45] VITALS: PULSE 69; RESP 22; O2SAT 99
[2023-11-26 07:45] LABS: Basophils # (auto) 0.1 10 ^3/uL (0-0.2); Basophils % (auto) 0.7 % (0.0-2.0); Eosinophils # (auto) 0.6 10 ^3/uL (0-0.8); Eosinophils % (auto) 8.5 % (0.0-7.0); Hematocrit 35.5 % (41.0-53.0); Hemoglobin 10.9 g/dL (13.5-17.5); Lymphocytes # (auto) 1.1 10 ^3/uL (0.4-5.4); Lymphocytes % (auto) 16.3 % (10.0-50.0); Mean Corpuscular Hemoglobin 34.3 pg (28.0-32.0); Mean Corpuscular Hgb Conc. 30.6 g/dL (32.0-36.0); Monocytes # (auto) 0.7 10 ^3/uL (0-1.3); Monocytes % (auto) 10.8 % (0.0-12.0); Neutrophils # (auto) 4.3 10 ^3/uL (1.6-8.6); Neutrophils % (auto) 63.7 % (37.0-80.0); Nucleated Red Blood Cells % 0.1 %; Red Blood Cells 3.17 10^6/uL (4.5-5.90); Red Cell Distribution Width 15.6 % (11.8-14.3); White Blood Cell 6.8 10^3/uL (4.4-10.8)
[2023-11-26 07:54] LABS: Albumin 3.2 g/dL (3.2-4.8); Alkaline Phosphatase 80 U/L (46-116); Anion Gap 7 (5-15); Aspartate Aminotransferase 16 U/L (13-40); BUN/Creatinine Ratio 7.3 (10.0-20.0); Bilirubin, Total 0.2 mg/dL (0.2-1.0); Blood Urea Nitrogen 24 mg/dL (9-23); Calcium 8.2 mg/dL (8.7-10.4); Carbon Dioxide 28 mmol/L (20-30); Chloride 105 mmol/L (98-107); Glucose 85 mg/dL (74-106); Potassium 4.2 mmol/L (3.5-5.1); Sodium 140 mmol/L (136-145); Total Protein 5.2 g/dL (5.7-8.2)
[2023-11-26 08:10] LABS: Alanine Aminotransferase < 9 U/L (7-40)
[2023-11-26 08:43] LABS: Platelet Estimate Decreased
[2023-11-26 08:45] LABS: Macrocytosis Marked
[2023-11-26] MEDS ORDERED: DOCUSATE SOD 100 MG CAP PO PRN (11:45)
[2023-11-26] MEDS ORDERED: ONDANSETRON HCL 4 MG/2 ML VIAL IV PRN (11:45)
[2023-11-26] MEDS ORDERED: MORPHINE SULFATE INJ 2 MG/ml SYRG IV PRN (11:45)
[2023-11-26] MEDS: FUROSEMIDE 100 MG/10ML VIAL IV ONE (12:33)
[2023-11-26] MEDS: cefTRIAXone 1GM/50ML D5W 50 ML IV ONE (12:34)
[2023-11-26] MEDS: ENOXAPARIN SOD 30 MG/0.3 ML SYRINGE SC SCH (12:34)
[2023-11-26] MEDS: CALCIUM ACETATE 667 MG CAP PO SCH ×2 (13:30→15:41)
[2023-11-26] MEDS ORDERED: RASA1TAB4 PO (14:08)
[2023-11-26] MEDS ORDERED: MIRT1TAB PO (14:08)
[2023-11-26] MEDS ORDERED: LISI40TA16 PO (14:08)
[2023-11-26] MEDS ORDERED: ATEN-60 PO (14:18)
[2023-11-26] MEDS ORDERED: TRAZ-228 PO (14:18)
[2023-11-26] MEDS ORDERED: NIFE1TAB31 PO (14:18)
[2023-11-26] MEDS ORDERED: HYDR-4227 PO (14:18)
[2023-11-26] MEDS ORDERED: LINA1CAP2 PO (14:18)
[2023-11-26] MEDS ORDERED: PATI1POW PO (14:43)
[2023-11-26] MEDS ORDERED: SEVE800T8 PO (14:43)
[2023-11-26] MEDS ORDERED: ONDA-155 PO (14:43)
[2023-11-26] MEDS ORDERED: HYDR-4795 PO (14:43)
[2023-11-26] MEDS ORDERED: ALBUAER3 INH (14:43)
[2023-11-26 15:14] LABS: Magnesium 2.1 mg/dL (1.6-2.6)
[2023-11-26] MEDS: FUROSEMIDE 100 MG/10ML VIAL IV SCH (18:04)
[2023-11-26] MEDS: SEVELAMER 800 MG TAB PO SCH (18:04)
[2023-11-26] MEDS: ATORVASTATIN 20 MG TAB PO SCH (18:05)
[2023-11-26 19:44] VITALS: PULSE 77; RESP 17; O2SAT 98
[2023-11-26] MEDS ORDERED: LORazepam 2MG/ML-1ML VIAL IV PRN (20:00)
[2023-11-26] MEDS: PRIMIDONE 50 MG TAB PO SCH (22:00)
[2023-11-26] MEDS: GEMFIBROZIL 600 MG TAB PO SCH (22:00)
[2023-11-26] MEDS: DOCUSATE SOD 100 MG CAP PO SCH (22:00)
[2023-11-26] MEDS: hydrALAZINE HCL 25 MG TAB PO SCH (22:00)
[2023-11-26] MEDS: FISH OIL 1200 MG PO SCH (22:00)
[2023-11-26] MEDS: levETIRAcetam 500 MG TAB PO SCH (22:07)
[2023-11-26 22:25] VITALS: BP 145/67; PULSE 77; O2SAT 97
[2023-11-26 22:28] VITALS: BP 148/68; PULSE 80; O2SAT 97
[2023-11-26] MEDS: DOXAZOSIN MESYL 2 MG TAB PO SCH (23:48)
[2023-11-27] VITALS (11 sets, daily range): BP systolic 113–145; BP diastolic 50–67; PULSE 52–77; RESP 17–22; TEMP 97.7–99; O2SAT 90–100
[2023-11-27] MEDS: LOPERAMIDE HCL 2 MG CAP/TAB PO PRN (00:19)
[2023-11-27] MEDS: ACETAMINOPHEN 325 MG TAB PO PRN (00:19)
[2023-11-27 08:25] LABS: Basophils # (auto) 0.1 10 ^3/uL (0-0.2); Basophils % (auto) 0.9 % (0.0-2.0); Eosinophils # (auto) 0.4 10 ^3/uL (0-0.8); Neutrophils # (auto) 4.1 10 ^3/uL (1.6-8.6)
[2023-11-27 08:27] LABS: Eosinophils % (auto) 5.9 % (0.0-7.0); Hematocrit 30.5 % (41.0-53.0); Hemoglobin 9.8 g/dL (13.5-17.5); Lymphocytes # (auto) 1.5 10 ^3/uL (0.4-5.4); Lymphocytes % (auto) 20.7 % (10.0-50.0); Mean Corpuscular Hemoglobin 34.2 pg (28.0-32.0); Monocytes # (auto) 1.1 10 ^3/uL (0-1.3); Monocytes % (auto) 15.1 % (0.0-12.0); Neutrophils % (auto) 57.4 % (37.0-80.0); Nucleated Red Blood Cells % 0.1 %; Red Blood Cells 2.85 10^6/uL (4.5-5.90); Red Cell Distribution Width 15.2 % (11.8-14.3); White Blood Cell 7.1 10^3/uL (4.4-10.8)
[2023-11-27] MEDS: cefTRIAXone 1GM/50ML D5W 50 ML IV SCH (08:42)
[2023-11-27 08:43] LABS: Alanine Aminotransferase 15 U/L (7-40); Albumin 3.1 g/dL (3.2-4.8); Alkaline Phosphatase 65 U/L (46-116); Anion Gap 9 (5-15); Aspartate Aminotransferase 16 U/L (13-40); BUN/Creatinine Ratio 9.6 (10.0-20.0); Calcium 8.5 mg/dL (8.5-10.1); Carbon Dioxide 27 mmol/L (20-30); Chloride 107 mmol/L (98-107); Glucose 109 mg/dL (74-106); Sodium 143 mmol/L (136-145)
[2023-11-27 08:44] LABS: Bilirubin, Total < 0.2 mg/dL (0.2-1.0); Blood Urea Nitrogen 44 mg/dL (9-23); Total Protein 4.9 g/dL (5.7-8.2)
[2023-11-27] MEDS ORDERED: amLODIPine BESYLATE 5 MG TAB PO SCH (10:00)
[2023-11-27] MEDS ORDERED: PATIENTS OWN MEDICATION (Furosemide (Lasix) 1 TAB) PO SCH (10:00)
[2023-11-27] MEDS: METOPROLOL SUCCINATE XL 50 MG TAB PO SCH (10:29)
[2023-11-27] MEDS: amLODIPine BESYLATE 5 MG TAB PO SCH (10:30)
[2023-11-27] MEDS: MEMANTINE HCL 5 MG TAB PO SCH (10:30)
[2023-11-27] MEDS: PANTOPRAZOLE 40 MG/10 ML VIAL INJ IV SCH (10:31)
[2023-11-27] MEDS: ISOSORBIDE MONONITRATE ER 60 MG TAB PO SCH (10:31)
[2023-11-27] MEDS ORDERED: IPRATROPIUM BROM 0.5 MG/2.5ML INH SOL NEB PRN (11:15)
[2023-11-27] MEDS ORDERED: ALBUTEROL SULF 2.5 MG/0.5ML(0.5%) NEB SOLN NEB PRN (11:15)
[2023-11-27] MEDS: VANCOMYCIN HCL 125 MG CAP PO SCH (13:55)
[2023-11-27 16:22] LABS: Base Excess 0.3 mmol/L (-2.0-2.0)
[2023-11-27 19:32] LABS: Base Excess -1.1 mmol/L (-2.0-2.0)
[2023-11-27] MEDS: EPOETIN ALFA-EPBX 4,000 UNIT/ML VIAL SC ONE (22:27)
[2023-11-27] MEDS: PRIMIDONE 50 MG TAB PO SCH (22:29)
[2023-11-27 22:47] LABS: Base Excess 2.5 mmol/L (-2.0-2.0)
[2023-11-28] VITALS (13 sets, daily range): BP systolic 109–135; BP diastolic 50–56; PULSE 55–82; RESP 18–22; TEMP 97.6–98.4; O2SAT 90–99
[2023-11-28] MEDS: LORazepam 2MG/ML-1ML VIAL IV PRN (01:03)
[2023-11-28 07:35] LABS: Chloride 104 mmol/L (98-107); Potassium 4.2 mmol/L (3.5-5.1); Sodium 142 mmol/L (136-145)
[2023-11-28 07:36] LABS: Anion Gap 8 (5-15); Calcium 8.5 mg/dL (8.5-10.1); Carbon Dioxide 30 mmol/L (20-30)
[2023-11-28 07:41] LABS: BUN/Creatinine Ratio 6.1 (10.0-20.0); Blood Urea Nitrogen 19 mg/dL (9-23); Glucose 63 mg/dL (74-106)
[2023-11-28 07:50] LABS: Basophils # (auto) 0 10 ^3/uL (0-0.2); Basophils % (auto) 0.9 % (0.0-2.0); Hemoglobin 9.3 g/dL (13.5-17.5); Lymphocytes # (auto) 0.7 10 ^3/uL (0.4-5.4); Monocytes # (auto) 0.5 10 ^3/uL (0-1.3); White Blood Cell 5.1 10^3/uL (4.4-10.8)
[2023-11-28 07:51] LABS: Eosinophils # (auto) 0.2 10 ^3/uL (0-0.8); Eosinophils % (auto) 4.5 % (0.0-7.0); Hematocrit 28.5 % (41.0-53.0); Lymphocytes % (auto) 14.1 % (10.0-50.0); Mean Corpuscular Hemoglobin 34.4 pg (28.0-32.0); Mean Corpuscular Hgb Conc. 32.7 g/dL (32.0-36.0); Mean Corpuscular Volume 104.9 fL (80.0-100.0); Monocytes % (auto) 10.8 % (0.0-12.0); Neutrophils # (auto) 3.5 10 ^3/uL (1.6-8.6); Neutrophils % (auto) 69.7 % (37.0-80.0); Nucleated Red Blood Cells % 0.1 %; Red Blood Cells 2.72 10^6/uL (4.5-5.90); Red Cell Distribution Width 14.8 % (11.8-14.3)
[2023-11-28 09:35] LABS: Base Excess -0.5 mmol/L (-2.0-2.0)
[2023-11-28 15:52] LABS: Base Excess 4.5 mmol/L (-2.0-2.0)
[2023-11-28 16:32] LABS: INR 1.1 (0.9-1.15); Partial Thromboplastin Time 32.6 SEC (24.5-34.5); Prothrombin Time 11.5 sec (9.3-11.8)
[2023-11-28] MEDS: PRIMIDONE 50 MG TAB PO SCH (23:30)
[2023-11-29] VITALS (11 sets, daily range): BP systolic 116–139; BP diastolic 49–56; PULSE 55–67; RESP 18–20; TEMP 97.7–98.9; O2SAT 92–96
[2023-11-29 05:42] LABS: Hemoglobin 9.8 g/dL (13.5-17.5)
[2023-11-29 05:47] LABS: Hematocrit 29.3 % (41.0-53.0)
[2023-11-29 13:36] LABS: Body Fluid Polymorphonuclear 5 % (0-25); Body Fluid Red Blood Cells 21000 CUMM (0-2000); Body Fluid White Blood Cells 200 CUMM (0-200)
[2023-11-30] VITALS (8 sets, daily range): BP systolic 127–156; BP diastolic 34–59; PULSE 54–67; RESP 17–22; TEMP 97–98; O2SAT 91–97
[2023-11-30 15:59] LABS: Eosinophils # (auto) 0.5 10 ^3/uL (0-0.8); Hemoglobin 10.5 g/dL (13.5-17.5); Lymphocytes # (auto) 1.3 10 ^3/uL (0.4-5.4); Monocytes # (auto) 0.7 10 ^3/uL (0-1.3); Neutrophils # (auto) 2.5 10 ^3/uL (1.6-8.6); White Blood Cell 5.1 10^3/uL (4.4-10.8)
[2023-11-30 16:01] LABS: Basophils # (auto) 0.1 10 ^3/uL (0-0.2); Eosinophils % (auto) 10.4 % (0.0-7.0); Hematocrit 32.6 % (41.0-53.0); Lymphocytes % (auto) 25.9 % (10.0-50.0); Mean Corpuscular Hemoglobin 33.3 pg (28.0-32.0); Mean Corpuscular Hgb Conc. 32.2 g/dL (32.0-36.0); Mean Corpuscular Volume 103.5 fL (80.0-100.0); Neutrophils % (auto) 48.7 % (37.0-80.0); Nucleated Red Blood Cells % 0.5 %; Red Blood Cells 3.15 10^6/uL (4.5-5.90); Red Cell Distribution Width 14.8 % (11.8-14.3)
[2023-11-30 16:09] LABS: Chloride 105 mmol/L (98-107); Potassium 4.9 mmol/L (3.5-5.1); Sodium 138 mmol/L (136-145)
[2023-11-30 16:10] LABS: Calcium 8.7 mg/dL (8.5-10.1)
[2023-11-30 16:15] LABS: BUN/Creatinine Ratio 6.1 (10.0-20.0); Blood Urea Nitrogen 33 mg/dL (9-23); Glucose 97 mg/dL (74-106)
[2023-11-30 16:35] LABS: Anion Gap 4 (5-15); Carbon Dioxide 29 mmol/L (20-30)
[2023-12-01] VITALS (11 sets, daily range): BP systolic 107–156; BP diastolic 40–54; PULSE 62–67; RESP 16–20; TEMP 97.6–98.1; O2SAT 90–97
[2023-12-02] VITALS (10 sets, daily range): BP systolic 117–138; BP diastolic 33–61; PULSE 60–87; RESP 16–20; TEMP 97.9–98.6; O2SAT 93–97
[2023-12-02] MEDS: SODIUM CHL 0.9% 1000 ML BAG XX ONE ×3 (08:02→08:06)
[2023-12-02] MEDS: EPOETIN ALFA-EPBX 10,000 UNIT/1ML VIAL SC ONE (08:09)
[2023-12-02 09:10] LABS: Hepatitis B Surface Antibody Positive (Negative)
[2023-12-02 09:22] LABS: Hepatitis B Surface Antigen Negative (Negative)
[2023-12-03] VITALS (7 sets, daily range): BP systolic 100–158; BP diastolic 44–65; PULSE 56–90; RESP 18; TEMP 96.6–98; O2SAT 92–99
[2023-12-04 05:00] VITALS: BP 96/45; PULSE 67; RESP 18; TEMP 97.5; O2SAT 95
[2023-12-04 08:00] VITALS: BP 118/76; PULSE 76; RESP 18; TEMP 99; O2SAT 94
[2023-12-04 09:00] VITALS: BP 118/76; PULSE 76; RESP 18; TEMP 99.3; O2SAT 94
[2023-12-04 12:34] VITALS: BP 118/76; PULSE 76; TEMP 37.4
[2023-12-04 12:44] VITALS: BP 92/45; PULSE 69; RESP 16; TEMP 98.7; O2SAT 90
[2023-12-04] MEDS: PNEUMOCOCCAL VACC POLYS 25 MCG/0.5 ML VIAL IM ONE (15:29)
[2023-12-04] MEDS: SODIUM CHL 0.9% 1000 ML BAG XX ONE (15:31)
== END 2023-12-04 15:30 | DRG 291 ==
LOC: ER 06:25 → EDBD 06:25 → TELE 11:57 → TELE-WESTW 22:15 → WEST WING 12-03 23:49
PROVIDERS: ADMIT Nurse Practitioner Family; ATTEND Nurse Practitioner Acute Care
PROC: 5A1D70Z Performance of Urinary Filtration, Intermittent, Less than 6 Hours Per Day (ICD-10-PCS; 2023-11-26)
PROC: 5A09357 Assistance with Respiratory Ventilation, Less than 24 Consecutive Hours, Continuous Positive Airway Pressure (ICD-10-PCS; principal; 2023-11-27)
PROC: 5A1D70Z Performance of Urinary Filtration, Intermittent, Less than 6 Hours Per Day (ICD-10-PCS; 2023-11-28)
PROC: 0W9930Z Drainage of Right Pleural Cavity with Drainage Device, Percutaneous Approach (ICD-10-PCS; 2023-11-29)
PROC: 5A1D70Z Performance of Urinary Filtration, Intermittent, Less than 6 Hours Per Day (ICD-10-PCS; 2023-12-01)
PROC: 5A1D70Z Performance of Urinary Filtration, Intermittent, Less than 6 Hours Per Day (ICD-10-PCS; 2023-12-03)
DX: I13.2 Hypertensive heart and chronic kidney disease with heart failure and with stage 5 chronic kidney disease, or end stage renal disease (principal); G93.41 Metabolic encephalopathy; I50.43 Acute on chronic combined systolic (congestive) and diastolic (congestive) heart failure; J96.02 Acute respiratory failure with hypercapnia; N18.6 End stage renal disease; J96.01 Acute respiratory failure with hypoxia; A04.72 Enterocolitis due to Clostridium difficile, not specified as recurrent; J98.11 Atelectasis; I42.9 Cardiomyopathy, unspecified; E86.0 Dehydration; I65.23 Occlusion and stenosis of bilateral carotid arteries; S53.402A Unspecified sprain of left elbow, initial encounter; Z99.2 Dependence on renal dialysis; D69.6 Thrombocytopenia, unspecified; K21.9 Gastro-esophageal reflux disease without esophagitis; E78.5 Hyperlipidemia, unspecified; D63.1 Anemia in chronic kidney disease; J44.9 Chronic obstructive pulmonary disease, unspecified; R19.7 Diarrhea, unspecified; G20.A1 Parkinson's disease without dyskinesia, without mention of fluctuations; G40.909 Epilepsy, unspecified, not intractable, without status epilepticus; I08.3 Combined rheumatic disorders of mitral, aortic and tricuspid valves; E83.39 Other disorders of phosphorus metabolism; X58.XXXA Exposure to other specified factors, initial encounter; G25.0 Essential tremor; Z96.643 Presence of artificial hip joint, bilateral; D75.89 Other specified diseases of blood and blood-forming organs; F17.210 Nicotine dependence, cigarettes, uncomplicated; Z79.899 Other long term (current) drug therapy; Z82.49 Family history of ischemic heart disease and other diseases of the circulatory system; Z82.5 Family history of asthma and other chronic lower respiratory diseases
CPT/HCPCS: 36415; 36600; 70450; 71045; 72192; 73070; 76604; 76942; 80048; 80053; 80061; 82306; 82728; 82805; 82962; 83036; 83540; 83550; 83615; 83735; 83880; 83970; 83986; 84100; 84443; 84484; 85014; 85018; 85025; 85610; 85730; 86706; 87040; 87070; 87077; 87081; 87186; 87205; 87340; 89051; 90935; 93005; 93306; 93886; 94660; 97110; 97116; 97163; 97530; 99291; C9113; G0378